=== PATIENT | male | born 1945 | race Caucasian/White ===

== ENCOUNTER → 2016-08-05 | Outpatient (REF) | payer MEDICARE, OTHER ==
[2016-08-05 16:59] LABS: MEAN CORPUSCULAR HEMOGLOBIN 29.4 pg (27.0-33.0); MEAN CORPUSCULAR HGB CONC 33.8 g/dl (32.0-36.5); MEAN CORPUSCULAR VOLUME 87.1 fl (80.0-96.0); RED CELL DISTRIBUTION WIDTH 12.9 % (11.5-14.5); WHITE BLOOD COUNT 7.7 K/mm3 (4.0-10.0)
[2016-08-05 17:50] LABS: ALBUMIN 3.7 GM/DL (3.2-5.2); ALBUMIN/GLOBULIN RATIO 1.03 (1.00-1.93); ALKALINE PHOSPHATASE 107 U/L (45-117); ALT/SGPT 27 U/L (12-78); ANION GAP 6 MEQ/L (8-16); AST/SGOT 18 U/L (15-37); BILIRUBIN,TOTAL 0.4 MG/DL (0.2-1.0); BLOOD UREA NITROGEN 15 MG/DL (7-18); CALCIUM LEVEL 8.8 MG/DL (8.8-10.2); CARBON DIOXIDE LEVEL 30 MEQ/L (21-32); CHLORIDE LEVEL 104 MEQ/L (98-107); CHOLESTEROL LEVEL 133 MG/DL (<200); CREATININE FOR GFR 0.83 MG/DL (0.70-1.30); GLOMERULAR FILTRATION RATE > 60.0 (>49); GLUCOSE, FASTING 104 MG/DL (80-110); SODIUM LEVEL 140 MEQ/L (136-145); TOTAL PROTEIN 7.3 GM/DL (6.4-8.2); TRIGLYCERIDES LEVEL 149 MG/DL (<150)
== END ==
LOC: M SFHCCLAY 13:34
PROVIDERS: ATTEND Family Medicine
DX: Z51.81 Encounter for therapeutic drug level monitoring (principal); Z79.01 Long term (current) use of anticoagulants; I10 Essential (primary) hypertension; E78.00 Pure hypercholesterolemia, unspecified; Z79.899 Other long term (current) drug therapy

== ENCOUNTER → 2017-07-18 | Outpatient (REF) | payer MEDICARE, OTHER ==
[2017-07-18 12:29] LABS: HEMATOCRIT 41.3 % (42.0-52.0); HEMOGLOBIN 13.8 g/dl (13.5-17.5); MEAN CORPUSCULAR HEMOGLOBIN 29.1 pg (27.0-33.0); MEAN CORPUSCULAR HGB CONC 33.4 g/dl (32.0-36.5); MEAN CORPUSCULAR VOLUME 86.9 fl (80.0-96.0); PLATELET COUNT, AUTOMATED 190 10^3/uL (150-450); RED BLOOD COUNT 4.75 10^6/uL (4.30-6.10); RED CELL DISTRIBUTION WIDTH 12.8 % (11.5-14.5)
[2017-07-18 12:47] LABS: TOTAL 25(OH) VITAMIN D 28.9 NG/ML (30.0-100.0)
[2017-07-18 12:59] LABS: ALBUMIN 3.7 GM/DL (3.2-5.2); ALKALINE PHOSPHATASE 100 U/L (45-117); ALT/SGPT 24 U/L (12-78); ANION GAP 8 MEQ/L (8-16); AST/SGOT 21 U/L (7-37); BILIRUBIN,TOTAL 0.4 MG/DL (0.2-1.0); BLOOD UREA NITROGEN 22 MG/DL (7-18); CARBON DIOXIDE LEVEL 30 MEQ/L (21-32); CHLORIDE LEVEL 104 MEQ/L (98-107); CHOLESTEROL LEVEL 122 MG/DL (<200); CHOLESTEROL RISK RATIO 4.518 (<5); CREATININE FOR GFR 0.89 MG/DL (0.70-1.30); DIGOXIN LEVEL 0.9 NG/ML (0.5-2.0); GLOMERULAR FILTRATION RATE > 60.0 (>42); GLUCOSE, FASTING 121 MG/DL (70-100); HDL CHOLESTEROL 27 MG/DL (>40); LDL CHOLESTEROL 72.6 MG/DL (<100); NON-HDL-C 95 MG/DL; POTASSIUM SERUM 4.2 MEQ/L (3.5-5.1); SODIUM LEVEL 142 MEQ/L (136-145); TOTAL PROTEIN 7.4 GM/DL (6.4-8.2); TRIGLYCERIDES LEVEL 112 MG/DL (<150)
== END ==
LOC: M SFHCCLAY 07:43
DX: E55.9 Vitamin D deficiency, unspecified (principal); I10 Essential (primary) hypertension; I48.2 Chronic atrial fibrillation; Z79.01 Long term (current) use of anticoagulants; E78.00 Pure hypercholesterolemia, unspecified
CPT/HCPCS: 80162

== ENCOUNTER → 2017-07-28 | Outpatient (CLI) | payer MEDICARE, OTHER | LOC: M RAD 15:31 | DX: M54.5 Low back pain (principal) | CPT/HCPCS: 72148 ==

== ENCOUNTER → 2017-08-29 | Outpatient (CLI) | payer MEDICARE, OTHER | LOC: M PAIN 11:00 | DX: M51.16 Intervertebral disc disorders with radiculopathy, lumbar region (principal); M54.5 Low back pain; G89.29 Other chronic pain; I10 Essential (primary) hypertension; E11.9 Type 2 diabetes mellitus without complications; E78.5 Hyperlipidemia, unspecified; M17.11 Unilateral primary osteoarthritis, right knee; I48.2 Chronic atrial fibrillation; K21.9 Gastro-esophageal reflux disease without esophagitis; E55.9 Vitamin D deficiency, unspecified; F17.200 Nicotine dependence, unspecified, uncomplicated; J43.9 Emphysema, unspecified; Z79.01 Long term (current) use of anticoagulants; Z79.899 Other long term (current) drug therapy; Z91.09 Other allergy status, other than to drugs and biological substances | CPT/HCPCS: G0463 ==

== ENCOUNTER → 2017-09-25 | Outpatient (CLI) | payer MEDICARE, OTHER | LOC: M PAIN 08:45 | DX: G89.29 Other chronic pain (principal); M51.16 Intervertebral disc disorders with radiculopathy, lumbar region; M48.061 Spinal stenosis, lumbar region without neurogenic claudication; G62.9 Polyneuropathy, unspecified; I10 Essential (primary) hypertension; E11.9 Type 2 diabetes mellitus without complications; E78.5 Hyperlipidemia, unspecified; M17.11 Unilateral primary osteoarthritis, right knee; I48.91 Unspecified atrial fibrillation; K21.9 Gastro-esophageal reflux disease without esophagitis; E55.9 Vitamin D deficiency, unspecified; F17.210 Nicotine dependence, cigarettes, uncomplicated; Z79.01 Long term (current) use of anticoagulants; Z79.899 Other long term (current) drug therapy; Z91.048 Other nonmedicinal substance allergy status | CPT/HCPCS: G0463 ==

== ENCOUNTER → 2017-10-23 | Outpatient (CLI) | payer MEDICARE, OTHER | LOC: M PAIN 09:15 | DX: M51.16 Intervertebral disc disorders with radiculopathy, lumbar region (principal); M48.061 Spinal stenosis, lumbar region without neurogenic claudication; G62.9 Polyneuropathy, unspecified; I10 Essential (primary) hypertension; E78.5 Hyperlipidemia, unspecified; I48.91 Unspecified atrial fibrillation; Z79.01 Long term (current) use of anticoagulants; Z79.899 Other long term (current) drug therapy | CPT/HCPCS: G0463 ==

== ENCOUNTER → 2018-02-27 | Outpatient (REF) | payer MEDICARE, OTHER ==
[2018-02-27 16:35] LABS: BASO # 0.1 10^3/uL (0.0-0.2); BASO % 0.6 % (0.0-1.0); EOS # 0.2 10^3/uL (0.0-0.50); EOS % 2.6 % (0.0-3.0); HEMATOCRIT 44.3 % (42.0-52.0); HEMOGLOBIN 15.1 g/dl (13.5-17.5); LYMPH # 1.8 10^3/uL (1.5-4.5); LYMPH % 21.3 % (24.0-44.0); MEAN CORPUSCULAR HEMOGLOBIN 29.3 pg (27.0-33.0); MEAN CORPUSCULAR HGB CONC 34.1 g/dl (32.0-36.5); MONO # 0.6 10^3/uL (0.0-0.8); MONO % 6.5 % (0.0-5.0); NEUTROPHILS # 5.8 10^3/uL (1.8-7.7); NEUTROPHILS % 68.5 % (36.0-66.0); PLATELET COUNT, AUTOMATED 175 10^3/uL (150-450); RED BLOOD COUNT 5.15 10^6/uL (4.30-6.10); WHITE BLOOD COUNT 8.5 10^3/uL (4.0-10.0)
[2018-02-27 16:56] LABS: ALBUMIN 3.9 GM/DL (3.2-5.2); ALT/SGPT 25 U/L (12-78); BILIRUBIN,TOTAL 0.4 MG/DL (0.2-1.0); BLOOD UREA NITROGEN 17 MG/DL (7-18); CALCIUM LEVEL 9.1 MG/DL (8.8-10.2); CARBON DIOXIDE LEVEL 30 MEQ/L (21-32); CHLORIDE LEVEL 102 MEQ/L (98-107); CREATININE FOR GFR 0.92 MG/DL (0.70-1.30); DIGOXIN LEVEL 1.3 NG/ML (0.5-2.0); FOLATE 14.6 NG/ML; GLOMERULAR FILTRATION RATE > 60.0 (>42); GLUCOSE, FASTING 123 MG/DL (70-100); POTASSIUM SERUM 4.2 MEQ/L (3.5-5.1); SODIUM LEVEL 138 MEQ/L (136-145); TOTAL PROTEIN 7.8 GM/DL (6.4-8.2); VITAMIN B12 LEVEL 413 PG/ML
[2018-02-27 17:28] LABS: HEMOGLOBIN A1c 6.6 %
== END ==
LOC: M SFHCCLAY 11:15
PROVIDERS: ATTEND Family Medicine
DX: R20.2 Paresthesia of skin (principal); Z79.01 Long term (current) use of anticoagulants; Z86.39 Personal history of other endocrine, nutritional and metabolic disease; I48.2 Chronic atrial fibrillation; E55.9 Vitamin D deficiency, unspecified
CPT/HCPCS: 80053; 80162; 82306; 82607; 82746; 83036; 85025; G0463

== ENCOUNTER → 2018-04-09 | Outpatient (CLI) | payer MEDICARE, OTHER ==
[~2018-04-09] MED LIST: GLUCAGON FOR INJ 1 MG VIAL (J1610) As Ordered ONE; ISOVUE-370 76% 100ML VIAL (Q9967) As Ordered ONE; VoLumen 0.1% SUSPENSION 450ML BOTTLE As Ordered ONE
--- NOTE | 2018-04-09 13:22 | REP ---
CT enterography: Without IV contrast and With IV and oral contrast. History: Rectal bleeding. Comparison study: November 04, 2011. CT enterography Technique: The patient ingested oral Volumen for PO contrast per protocol. 0.6 mg of intravenous glucagon is administered. 100 ml of Isovue 370 is given intravenously for intravenous contrast. Helical scanning is acquired. Arterial phase and delayed phase imaging was acquired. Thick slab coronal and sagittal MIP images are generated. In addition coronal and sagittal multiplanar re-formation images are generated and reviewed along with axial images. CT enterography findings: Preliminary digital senior graduate advisor radiograph is unremarkable. The lung bases remain clear on axial CT images. Cardiomegaly is observed and there is reflux of contrast opacified blood into the intrahepatic segment of the vena cava as well as in the hepatic veins. This can be a feature of right heart strain or right heart failure. No focal liver lesion is seen. The liver is not felt to be enlarged. Spleen is unremarkable. There is a small accessory splenule anteriorly unchanged. No adrenal lesion is seen on either side. No pancreatic abnormality is observed. The gallbladder is small and partially contracted in appearance. No CT abnormality is noted in the gallbladder. There is a 4.9 cm cyst in the upper pole left kidney which is unchanged from the comparison CT study. Smaller cortical cysts are also noted unchanged. No intrarenal calculus is seen. No hydronephrosis is seen. There is an infrarenal abdominal aortic aneurysm measuring 3.1 cm in greatest AP dimension. This measured 2.7 cm in AP dimension previously. Normal appendix is seen retrocecal. There is extensive left colonic diverticulosis without CT evidence of diverticulitis. Diverticulosis is seen as far proximal as the proximal transverse colon segment. There is no abnormal bowel wall thickening or enhancement seen in the large or small intestine on postcontrast images. No small or large bowel mass lesion is observed. Maximal intensity projection images show no additional abnormality. Impression: 1. Diverticulosis moderate in degree extending distally from the transverse segment. No evidence of diverticulitis. 2. 3.1 cm infrarenal abdominal aortic aneurysm. 3. Question right heart strain or right heart failure. Cardiac enlargement. 4. Renal cortical cysts. Electronically Signed by Ryan Cole MD 04/09/2018 05:21 P
== END ==
LOC: M RAD 07:26
PROVIDERS: ATTEND Physician Assistant Medical
DX: K62.5 Hemorrhage of anus and rectum (principal); I51.7 Cardiomegaly; N28.1 Cyst of kidney, acquired; I71.4 Abdominal aortic aneurysm, without rupture; K57.30 Diverticulosis of large intestine without perforation or abscess without bleeding
CPT/HCPCS: 74177; J1610; Q9967

== ENCOUNTER 2018-05-15 09:59 | Day surgery (SDC) | payer MEDICARE, OTHER ==
[~2018-05-15] VITALS: Ht 177.8 cm; Wt 108.0 kg
[~2018-05-15 09:59] MED LIST changes: +ATEN50TA2 PO; +DIGO0.25 PO; -GLUCAGON FOR INJ 1 MG VIAL (J1610) As Ordered ONE; -ISOVUE-370 76% 100ML VIAL (Q9967) As Ordered ONE; +LIDOCAINE 2% INJ 100 MG/5 ML SDV (FOR ANES.) As Ordered ONE; +LOVA40TA PO; +OMEP20CA3 PO; +PROPOFOL 200 MG/20 ML VIAL As Ordered ONE; +VITA100067 PO; +VITA100T60 PO; -VoLumen 0.1% SUSPENSION 450ML BOTTLE As Ordered ONE; +XARE10TA PO; +ZEST1TAB2 PO
[2018-05-15] MEDS ORDERED: NS 1,000 ML IV ONE (10:15)
--- NOTE | 2018-05-15 11:43 | ROOR ---
Patient Name: Michael Tran Procedure Date: 05/15/2018 11:23 AM Date of : 1945 Age: 73 Room: [facility] Gender: Male Note Status: Finalized Procedure: Upper GI endoscopy Indications: Hematochezia, Heme positive stool Providers: Luis MURCIA MD Referring MD: Rafita Novoa MD Requesting Provider: Medicines: Monitored Anesthesia Care Complications: No immediate complications. Procedure: Pre-Anesthesia Assessment: - The heart rate, respiratory rate, oxygen saturations, blood pressure, adequacy of pulmonary ventilation, and response to care were monitored throughout the procedure. The Endoscope was introduced through the mouth, and advanced to the second part of duodenum. The upper GI endoscopy was accomplished without difficulty. The patient tolerated the procedure well. Findings: A single 7 mm sessile polyp was found in the gastric antrum. The polyp was removed with a cold snare. Resection and retrieval were complete. Very small (insignificant) Hiatal Hernia. The exam was otherwise without abnormality. Impression: - A single gastric polyp. Resected and retrieved. - Very small (insignificant) Hiatal Hernia. - The examination was otherwise normal. Recommendation: - Telephone endoscopist for pathology results in 2 weeks. Luis Murcia MD Luis MURCIA MD 05/15/2018 11:43:13 AM This report has been signed electronically. Number of Addenda: 0 Note Initiated On: 05/15/2018 11:23 AM Estimated Blood Loss: Estimated blood loss: none.
[2018-05-15] MEDS ORDERED: PROPOFOL 200 MG/20 ML VIAL As Ordered ONE ×3 (11:56→12:35)
[2018-05-15] MEDS ORDERED: PHENYLephrine HCL 500 MCG/5 ML (100MCG/ML) SYRINGE (J2370) As Ordered ONE (12:07)
[2018-05-15] MEDS ORDERED: GLUCAGON FOR INJ 1 MG VIAL (J1610) As Ordered ONE (12:15)
--- NOTE | 2018-05-15 12:48 | ROOR ---
Patient Name: Michael Tran Procedure Date: 05/15/2018 11:24 AM Date of : 1945 Age: 73 Room: [facility] Gender: Male Note Status: Finalized Procedure: Colonoscopy Indications: Screening for colorectal malignant neoplasm Providers: Luis MURCIA MD Referring MD: Rafita Novoa MD Requesting Provider: Medicines: Monitored Anesthesia Care Complications: No immediate complications. Procedure: Pre-Anesthesia Assessment: - The heart rate, respiratory rate, oxygen saturations, blood pressure, adequacy of pulmonary ventilation, and response to care were monitored throughout the procedure. The Colonoscope was introduced through the anus and advanced to the cecum, identified by appendiceal orifice and ileocecal valve. The colonoscopy was performed without difficulty. The patient tolerated the procedure well. The quality of the bowel preparation was good. Findings: The perianal and digital rectal examinations were normal. Mild sigmoid diverticulosis and small internal hemorrhoids. Ten semi-sessile and semi-pedunculated polyps were found in the ascending colon. The polyps were 5 to 12 mm in size. These polyps were removed with a piecemeal technique using a hot snare. Resection and retrieval were complete. Ten sessile and semi-pedunculated polyps were found in the descending colon. The polyps were 5 to 12 mm in size. These polyps were removed with a piecemeal technique using a hot snare. Resection and retrieval were complete. Ten sessile and semi-pedunculated polyps were found in the sigmoid colon. The polyps were 5 to 12 mm in size. These polyps were removed with a hot snare. Resection and retrieval were complete. A 10 mm polyp was found in the mid sigmoid colon. The polyp was pedunculated. The polyp was removed with a hot snare. Resection and retrieval were complete. Eight sessile polyps were found in the rectum. The polyps were 5 to 7 mm in size. These polyps were removed with a hot snare. Resection and retrieval were complete. Impression: - Mild sigmoid diverticulosis and small internal hemorrhoids. - Ten 5 to 12 mm polyps in the ascending colon, removed piecemeal using a hot snare. Resected and retrieved. - Ten 5 to 12 mm polyps in the descending colon, removed piecemeal using a hot snare. Resected and retrieved. - Ten 5 to 12 mm polyps in the sigmoid colon, removed with a hot snare. Resected and retrieved. - One 10 mm polyp in the mid sigmoid colon, removed with a hot snare. Resected and retrieved. - Eight 5 to 7 mm polyps in the rectum, removed with a hot snare. Resected and retrieved. Recommendation: - Telephone endoscopist for pathology results in 2 weeks. - Repeat colonoscopy for surveillance based on pathology results. - (6 months to 1 year) - Resume Xarelto (rivaroxaban) at prior dose in 7 days. Luis Murcia MD Luis MURCIA MD 05/15/2018 12:48:00 PM This report has been signed electronically. Number of Addenda: 0 Note Initiated On: 05/15/2018 11:24 AM Estimated Blood Loss: Estimated blood loss: none.
[2018-05-15 13:05] VITALS: BP 133/98
== END 2018-05-15 13:20 | disposition home or self-care (01) ==
LOC: M OPP 09:59
PROVIDERS: ATTEND Internal Medicine Gastroenterology
DX: D12.2 Benign neoplasm of ascending colon (principal); D12.4 Benign neoplasm of descending colon; D12.5 Benign neoplasm of sigmoid colon; K62.1 Rectal polyp; K31.7 Polyp of stomach and duodenum; R19.5 Other fecal abnormalities; K64.8 Other hemorrhoids; K57.30 Diverticulosis of large intestine without perforation or abscess without bleeding; I48.2 Chronic atrial fibrillation; I34.0 Nonrheumatic mitral (valve) insufficiency; F17.210 Nicotine dependence, cigarettes, uncomplicated; Z79.899 Other long term (current) drug therapy
CPT/HCPCS: 43251; 45385; 88305; J1610; J2370

== ENCOUNTER → 2018-06-29 | Outpatient (CLI) | payer MEDICARE, OTHER ==
[~2018-06-29] MED LIST changes: -LIDOCAINE 2% INJ 100 MG/5 ML SDV (FOR ANES.) As Ordered ONE; -PROPOFOL 200 MG/20 ML VIAL As Ordered ONE
--- NOTE | 2018-06-29 10:10 | REP ---
Low-dose lung screening CT of the chest: The study is performed without IV contrast. The images are presented at lung windowing only. There are no comparisons. There is a ground-glass density posteriorly in the lingula on image 67 measuring 23 mm. There are no other nodules or masses. There are no infiltrates or effusions. Impression: The ground-glass density is a category 3 lesion with the probability of malignancy 1-2%. Follow-up chest CT and 6 months is recommended. Electronically Signed by Kayden Hess MD 06/29/2018 10:01 A
== END ==
LOC: M RAD 08:46
PROVIDERS: ATTEND Family Medicine
DX: Z72.0 Tobacco use (principal); Z87.891 Personal history of nicotine dependence

== ENCOUNTER → 2018-11-04 | Outpatient (REF) | payer MEDICARE, OTHER ==
[~2018-11-04] MED LIST changes: -OMEP20CA3 PO; +OMEP20CA4 PO
[2018-11-04 18:28] LABS: BLOOD UREA NITROGEN 14 MG/DL (7-18); CARBON DIOXIDE LEVEL 30 MEQ/L (21-32); CHLORIDE LEVEL 104 MEQ/L (98-107); CREATININE FOR GFR 0.85 MG/DL (0.70-1.30); GLOMERULAR FILTRATION RATE > 60.0 (>42); GLUCOSE, FASTING 118 MG/DL (70-100); MAGNESIUM LEVEL 1.9 MG/DL (1.8-2.4); POTASSIUM SERUM 3.8 MEQ/L (3.5-5.1); SODIUM LEVEL 140 MEQ/L (136-145)
[2018-11-04 19:12] LABS: HEMATOCRIT 42.5 % (42.0-52.0); HEMOGLOBIN 13.9 g/dl (13.5-17.5); MEAN CORPUSCULAR HEMOGLOBIN 28.5 pg (27.0-33.0); MEAN CORPUSCULAR HGB CONC 32.7 g/dl (32.0-36.5); MEAN CORPUSCULAR VOLUME 87.3 fl (80.0-96.0); PLATELET COUNT, AUTOMATED 178 10^3/uL (150-450); RED BLOOD COUNT 4.87 10^6/uL (4.30-6.10); WHITE BLOOD COUNT 8.2 10^3/uL (4.0-10.0)
== END ==
LOC: M LABDRAWC 16:34
PROVIDERS: ATTEND Physician Assistant
DX: I48.2 Chronic atrial fibrillation (principal)

== ENCOUNTER → 2018-12-01 | Outpatient (CLI) | payer MEDICARE, OTHER ==
[~2018-12-01] MED LIST changes: +ADV250INH INH; +CHOL100029 PO; -DIGO0.25 PO; +DIGO0.253 PO; +NICO21PAT TD; +OMEP1CAP73 PO; -OMEP20CA4 PO; +PRED10TA2 PO; +PROAAER10 INH
--- NOTE | 2018-12-01 14:20 | REP ---
Right lower extremity artery Doppler ultrasound: Right brachial artery peak systole: 110 mmHg Right dorsalis pedis peak systole: 122 mmHg LITHOGRAPHERS PRINTER peak systole: 130 mmHg BERONICA: 1.2 Peak Systolic Phasicity Velocity VARNISH SUPERVISOR 81.5 triphasic Profunda 157 point a triphasic SFA prox 72.6 triphasic SFA mid 58.3 triphasic SFA dist 55.2 triphasic Pop 66.1 triphasic BENJAMIN prox 58.3 triphasic Tib/P tr 37.0 triphasic LITHOGRAPHERS PRINTER pr 41.9 triphasic LITHOGRAPHERS PRINTER dst 46 point triphasic BENJAMIN dst 31.5 triphasic Mild stenosis is identified in the right common femoral artery and proximal profunda femoral artery. Left lower extremity artery Doppler ultrasound: Left brachial artery peak systole: 110 mmHg Dorsalis pedis peak systole: 120 mmHg LITHOGRAPHERS PRINTER peak systole: 128 mmHg BERONICA: 1.2 Peak Systolic Phasicity Velocity VARNISH SUPERVISOR 72.9 triphasic Profunda 871.7 triphasic SFA prox 71.1 triphasic SFA mid 75.2 triphasic SFA dist 39.9 triphasic Pop 847.7 triphasic BENJAMIN prox 47.2 triphasic Tib/P tr 40.9 triphasic LITHOGRAPHERS PRINTER pr 30.4 triphasic LITHOGRAPHERS PRINTER dst 33.5 triphasic BENJAMIN dst 34.2 triphasic There is no evidence of stenosis in the left lower extremity. Electronically Signed by Kayden Hess MD 12/01/2018 02:12 P
== END ==
LOC: M RAD 12:27
PROVIDERS: ATTEND Surgery Vascular Surgery
DX: M79.604 Pain in right leg (principal); M79.605 Pain in left leg; I77.1 Stricture of artery

== ENCOUNTER 2019-01-01 09:35 | Day surgery (SDC) | payer MEDICARE, OTHER ==
[~2019-01-01] VITALS: Ht 180.3 cm; Wt 106.1 kg
[~2019-01-01 09:35] MED LIST changes: -ADV250INH INH; +DIGO0.25 PO; -DIGO0.253 PO; -NICO21PAT TD; +NS 1,000 ML IV ONE; -OMEP1CAP73 PO; +OMEP20CA4 PO; -PRED10TA2 PO; -PROAAER10 INH
[2019-01-01] MEDS ORDERED: PROPOFOL 200 MG/20 ML VIAL As Ordered ONE (09:48)
[2019-01-01] MEDS ORDERED: LIDOCAINE 2% INJ 100 MG/5 ML SDV (FOR ANES.) As Ordered ONE (09:48)
[2019-01-01] MEDS ORDERED: LABETALOL HCL 100 MG/20 ML VIAL As Ordered ONE (10:37)
[2019-01-01] MEDS ORDERED: PHENYLephrine HCL 500 MCG/5 ML (100MCG/ML) SYRINGE (J2370) As Ordered ONE (10:48)
--- NOTE | 2019-01-01 10:54 | ROOR ---
Patient Name: Michael Tran Procedure Date: 01/01/2019 10:28 AM Date of : 1945 Age: 73 Room: [facility] Gender: Male Note Status: Finalized Procedure: Colonoscopy Indications: High risk colon cancer surveillance: Personal history of colonic polyps, Surveillance: History of numerous (> 10) adenomas on last colonoscopy (< 3 yrs), High risk colon cancer surveillance: Personal history of multiple (3 or more) adenomas, High risk colon cancer surveillance: Personal history of sessile serrated colon polyp (10 mm or greater in size) Providers: Luis MURCIA MD Referring MD: Rafita Novoa MD Requesting Provider: Medicines: Monitored Anesthesia Care Complications: No immediate complications. Procedure: Pre-Anesthesia Assessment: - The heart rate, respiratory rate, oxygen saturations, blood pressure, adequacy of pulmonary ventilation, and response to care were monitored throughout the procedure. The Colonoscope was introduced through the anus and advanced to the cecum, identified by the appendiceal orifice, ileocecal valve and palpation. The colonoscopy was performed without difficulty. The patient tolerated the procedure well. The quality of the bowel preparation was good. Findings: The perianal and digital rectal examinations were normal. Five sessile polyps were found in the sigmoid colon. The polyps were diminutive in size. These polyps were removed with a cold snare. Resection and retrieval were complete. Multiple medium-mouthed diverticula were found in the sigmoid colon. Internal hemorrhoids were found during retroflexion. The hemorrhoids were medium-sized. The exam was otherwise without abnormality on direct and retroflexion views. Impression: - Five diminutive polyps in the sigmoid colon, removed with a cold snare. Resected and retrieved. - Mild diverticulosis in the sigmoid colon. - Internal hemorrhoids. - The examination was otherwise normal on direct and retroflexion views. Recommendation: - Repeat colonoscopy in 3 years for surveillance. - Resume Xarelto (rivaroxaban) at prior dose tomorrow. Luis Murcia MD Luis MURCIA MD 01/01/2019 10:54:04 AM Electronically signed by Luis MURCIA MD Number of Addenda: 0 Note Initiated On: 01/01/2019 10:28 AM Estimated Blood Loss: Estimated blood loss: none.
[2019-01-01 11:15] VITALS: BP 124/85
== END 2019-01-01 11:16 | disposition home or self-care (01) ==
LOC: M OPP 09:35
PROVIDERS: ATTEND Internal Medicine Gastroenterology
DX: Z86.010 Personal history of colon polyps (principal); K63.5 Polyp of colon; K64.8 Other hemorrhoids; K57.30 Diverticulosis of large intestine without perforation or abscess without bleeding; K21.9 Gastro-esophageal reflux disease without esophagitis; F17.210 Nicotine dependence, cigarettes, uncomplicated; Z79.899 Other long term (current) drug therapy
CPT/HCPCS: 45385; 88305; J2370

== ENCOUNTER → 2019-08-04 | Outpatient (REF) | payer MEDICARE, OTHER ==
[~2019-08-04] MED LIST changes: +ADV250INH INH; -DIGO0.25 PO; +DIGO0.253 PO; +NICO21PAT TD; -NS 1,000 ML IV ONE; +OMEP1CAP73 PO; -OMEP20CA4 PO; +PRED10TA2 PO; +PROAAER10 INH
[2019-08-04 16:47] LABS: HEMATOCRIT 41.3 % (42.0-52.0); HEMOGLOBIN 13.4 g/dl (13.5-17.5); MEAN CORPUSCULAR HEMOGLOBIN 27.7 pg (27.0-33.0); MEAN CORPUSCULAR HGB CONC 32.4 g/dl (32.0-36.5); MEAN CORPUSCULAR VOLUME 85.3 fl (80.0-96.0); PLATELET COUNT, AUTOMATED 184 10^3/uL (150-450); RED BLOOD COUNT 4.84 10^6/uL (4.30-6.10); WHITE BLOOD COUNT 9.1 10^3/uL (4.0-10.0)
[2019-08-04 16:53] LABS: ALBUMIN 3.8 GM/DL (3.2-5.2); ALT/SGPT 22 U/L (12-78); BILIRUBIN,TOTAL 0.5 MG/DL (0.2-1.0); BLOOD UREA NITROGEN 21 MG/DL (7-18); CALCIUM LEVEL 8.7 MG/DL (8.8-10.2); CARBON DIOXIDE LEVEL 29 MEQ/L (21-32); CHLORIDE LEVEL 104 MEQ/L (98-107); CHOLESTEROL LEVEL 133 MG/DL (<200); CHOLESTEROL RISK RATIO 4.925 (<5); CREATININE FOR GFR 0.96 MG/DL (0.70-1.30); GLOMERULAR FILTRATION RATE > 60.0 (>42); GLUCOSE, FASTING 115 MG/DL (70-100); HDL CHOLESTEROL 27 MG/DL (>40); LDL CHOLESTEROL 69 MG/DL (<100); MAGNESIUM LEVEL 1.8 MG/DL (1.8-2.4); NON-HDL-C 106 MG/DL; POTASSIUM SERUM 4.2 MEQ/L (3.5-5.1); SODIUM LEVEL 140 MEQ/L (136-145); TOTAL PROTEIN 7.5 GM/DL (6.4-8.2); TRIGLYCERIDES LEVEL 184 MG/DL (<150)
== END ==
LOC: M LABDRAWC 15:50
PROVIDERS: ATTEND Physician Assistant
DX: I48.21 Permanent atrial fibrillation (principal); I11.9 Hypertensive heart disease without heart failure; E78.2 Mixed hyperlipidemia

== ENCOUNTER → 2019-12-24 | Outpatient (CLI) | payer MEDICARE, OTHER ==
--- NOTE | 2019-12-29 08:05 | REP ---
BILATERAL LOWER EXTREMITY ARTERIAL DOPPLER ULTRASOUND HISTORY: Nicotine dependence, atherosclerosis of the lower extremities bilaterally. FINDINGS: Ankle brachial indices are normal measured at 1.2 on the left and 1.0 on the right. Moderate plaquing is seen. Normal triphasic and biphasic waveforms are noted. No stenosis or occlusion is seen. BILATERAL LOWER EXTREMITY ARTERIAL VELOCITY CHART RIGHT PSV (cm/s) LEFT PSV (cm/s) MAMMOGRAPHY TECH 99 94 Profunda 163 89 Proximal SFA 130 108 Mid SFA 75 81 Distal SFA 36 102 Popliteal 64/72 77/93 Proximal BENJAMIN 106 104 Tibioperoneal trunk 57 50 Proximal LICENSED PHYSICAL THERAPY ASSISTANT 26 52 Distal LICENSED PHYSICAL THERAPY ASSISTANT 49 17 Distal BENJAMIN 15 49 MTDD
== END ==
LOC: M RAD 09:58
PROVIDERS: ATTEND Surgery Vascular Surgery
DX: I70.203 Unspecified atherosclerosis of native arteries of extremities, bilateral legs (principal); F17.210 Nicotine dependence, cigarettes, uncomplicated

== ENCOUNTER → 2020-01-06 | Outpatient (REF) | payer MEDICARE, OTHER ==
[2020-01-06 12:21] LABS: HEMATOCRIT 42.6 % (42.0-52.0); HEMOGLOBIN 12.8 g/dl (13.5-17.5); MEAN CORPUSCULAR VOLUME 83.2 fl (80.0-96.0); PLATELET COUNT, AUTOMATED 214 10^3/uL (150-450); RED BLOOD COUNT 5.12 10^6/uL (4.30-6.10); WHITE BLOOD COUNT 9.6 10^3/uL (4.0-10.0)
[2020-01-06 12:44] LABS: BLOOD UREA NITROGEN 19 MG/DL (7-18); CARBON DIOXIDE LEVEL 31 MEQ/L (21-32); CHLORIDE LEVEL 102 MEQ/L (98-107); CREATININE FOR GFR 0.88 MG/DL (0.70-1.30); GLOMERULAR FILTRATION RATE > 60.0 (>42); GLUCOSE, FASTING 116 MG/DL (70-100); MAGNESIUM LEVEL 1.7 MG/DL (1.8-2.4); POTASSIUM SERUM 4.3 MEQ/L (3.5-5.1); SODIUM LEVEL 140 MEQ/L (136-145)
== END ==
LOC: M LABDRAWC 11:27
PROVIDERS: ATTEND Physician Assistant
DX: I48.21 Permanent atrial fibrillation (principal); I11.9 Hypertensive heart disease without heart failure

== ENCOUNTER 2020-03-08 10:07 | Emergency (ER) | payer MEDICARE, OTHER ==
[~2020-03-08] VITALS: Ht 180.3 cm; Wt 110.3 kg
--- NOTE | 2020-03-08 10:35 | REP ---
INDICATION: CHEST PAIN COMPARISON: 07/10/2011 TECHNIQUE: PA and lateral. FINDINGS: The mediastinum and cardiac silhouette are normal. The lung soria demonstrate chronic appearing changes primarily involving the left lower lung zone without acute consolidation, effusion, or pneumothorax. The skeletal structures are intact and normal. IMPRESSION: Chronic appearing changes. No obvious acute consolidation or effusion. <Electronically signed by Shaw Glover > 03/08/20 [id number]
[2020-03-08] MEDS ORDERED: ASPIRIN 81 MG CHEW TABLET PO ONE (10:45)
[2020-03-08 10:48] LABS: BASO # 0.1 10^3/uL (0.0-0.2); BASO % 0.4 % (0.0-1.0); EOS # 0.1 10^3/uL (0.0-0.5); EOS % 0.8 % (0.0-3.0); HEMATOCRIT 44.1 % (42.0-52.0); HEMOGLOBIN 13.5 g/dl (13.5-17.5); LYMPH # 1.3 10^3/uL (1.5-5.0); LYMPH % 8.8 % (24.0-44.0); MEAN CORPUSCULAR HEMOGLOBIN 24.7 pg (27.0-33.0); MEAN CORPUSCULAR HGB CONC 30.6 g/dl (32.0-36.5); MEAN CORPUSCULAR VOLUME 80.8 fl (80.0-96.0); MONO # 0.8 10^3/uL (0.0-0.8); MONO % 5.2 % (0.0-5.0); NEUTROPHILS # 12.4 10^3/uL (1.5-8.5); NEUTROPHILS % 84.2 % (36.0-66.0); PLATELET COUNT, AUTOMATED 210 10^3/uL (150-450); RED BLOOD COUNT 5.46 10^6/uL (4.30-6.10); WHITE BLOOD COUNT 14.7 10^3/uL (4.0-10.0)
[2020-03-08 11:02] LABS: INR 1.23; PROTHROMBIN TIME 15.8 SECONDS (12.5-14.3)
[2020-03-08 11:03] LABS: PARTIAL THROMBOPLASTIN TIME 35.5 SECONDS (24.2-38.5)
[2020-03-08 11:26] LABS: ALBUMIN 3.7 GM/DL (3.2-5.2); ALT/SGPT 22 U/L (12-78); BILIRUBIN,DIRECT 0.2 MG/DL (0.0-0.2); BILIRUBIN,TOTAL 0.7 MG/DL (0.2-1.0); BLOOD UREA NITROGEN 19 MG/DL (7-18); CALCIUM LEVEL 9.2 MG/DL (8.8-10.2); CARBON DIOXIDE LEVEL 30 MEQ/L (21-32); CHLORIDE LEVEL 103 MEQ/L (98-107); CPK CREATINE PHOSPHOKINASE 148 U/L (39-308); CREATININE FOR GFR 1.01 MG/DL (0.70-1.30); FREE T4 0.83 NG/DL (0.76-1.46); GLOMERULAR FILTRATION RATE > 60.0 (>42); GLUCOSE, FASTING 126 MG/DL (70-100); LIPASE 73 U/L (73-393); MB/CK RELATIVE INDEX 2.03 (< OR =4); POTASSIUM SERUM 4.1 MEQ/L (3.5-5.1); SODIUM LEVEL 137 MEQ/L (136-145); TOTAL PROTEIN 8.4 GM/DL (6.4-8.2); TROPONIN I < 0.02 NG/ML (< 0.10)
[2020-03-08 12:15] VITALS: BP 131/78
--- NOTE | 2020-03-10 07:29 | ECGEPIP ---
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
== END 2020-03-08 12:24 | disposition home or self-care (01) ==
LOC: M ED 10:07
DX: R07.9 Chest pain, unspecified (principal); I48.91 Unspecified atrial fibrillation; E11.9 Type 2 diabetes mellitus without complications; I10 Essential (primary) hypertension; E78.5 Hyperlipidemia, unspecified; J44.9 Chronic obstructive pulmonary disease, unspecified; M19.90 Unspecified osteoarthritis, unspecified site; M48.061 Spinal stenosis, lumbar region without neurogenic claudication; Z87.891 Personal history of nicotine dependence; Z79.899 Other long term (current) drug therapy

== ENCOUNTER 2020-05-05 02:17 | Emergency (ER) | payer MEDICARE, OTHER ==
[~2020-05-05] VITALS: Ht 182.9 cm; Wt 106.9 kg
--- OUTSIDE RECORDS SUMMARY | 2020-05-05 02:26 | CCD ---
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 A ctive 549754584 Problem Tobacco use disorder Z72.0 Active 45593376 Problem Vitamin D deficiency E55.9 Active 52613867 Problem Gastro-esophageal reflux disease without esophagitis K21.9 Active 383682877 Problem Paresthesias R20.2 Active 66562480 Problem History of elevated glucose Z86.39 Active 4176 47607 Problem Chronic obstructive pulmonary disease, unspecified COPD ty pe J44.9 Active 33500680 Problem Spinal stenosis of lumbar re gion, unspecified whether neurogenic claudication present M48.061 Active 63068035 Problem Neuropathy G62.9 Active 568918707 Problem Cigarette nicotine dependence, uncomplicated F17.2 10 Active 84407296 Problem Intervertebral disc disorder with radiculopathy of lumbar region M51.16 Active 09379148 Problem Chronic obstructive pulmonary disease with acute exacerbat ion J44.1 Active 199929530 Problem Dyslipidemia E78.5 Active 785383502 Problem Hypertensive heart disease without heart failure I 11.9 Active 44278699 Problem Permanent atrial fibrillation I48.21 Active 44 5710457 ALLERGIES Allergen (clinical drug ingredient) Drug/Non Drug Allergy do cumented on EMR Reaction Allergy Type Onset Date Status possible velcro Rash Non Drug Allergy Act yesi ENCOUNTERS from 1945 to 2020-03-08 Encounter Location Date Provider Diagnosis [place] [address] Feb Asmita Cantu IMMUNIZATIONS Vaccine Route Administration Date Status Influenza (Pharmacy Given) Unknown Jan 11, 2020 Admin istered Influenza (18 yrs & older) Flublok IM Intramuscular Feb 05, 2019 Administered Influenza (High Dose 65 & up) IM Intramuscular Nov 30, 2015 A dministered Pneumococcal Adult 0.5mL (Pneumovax 23) IM Intramuscular Jan 26, 2013 Administered Pneumococcal 0.5mL (Prevnar 13) IM Intramuscular Nov 30, 2015 Administered Influenza (6mo & up) Fluzone Unknown Dec 27, 2011 Adm inistered SOCIAL HISTORY Tobacco Use: Social History Observation Description Date Details (start date - stop date) Current Smoker Sex Assigned At : Social History Observation Description Sex Assigned At Unknown Education: Question Answer Notes Level of Education: Not Finished College Audit Question Answer Notes Total Score: 2 Interpretation: Alcohol Education Language: Question Answer Notes Languages spoken: Yi Buddhist: Question Answer Notes Buddhist 13 Scientologist Sexual Hx: Question Answer Notes Had sex in the last 12 months (vaginal, oral, or anal)? Yes Have you ever had an STD? No Prevention Strategies discussed: Other with Women only Use protection? No Drug and Alcohol Question Answer Notes Total Score: 0 Interpretation: No problems reported Alcohol Screening: Question Answer Notes Did you have a drink containing alcohol in the past year? Ye s Points 2 Interpretation Negative How often did you have six or more drinks on one occas ion in the past year? Never (0 points) How many drinks did you have on a typica l day when you were drinking in the past year? 3 or 4 (1 point) How often did you have a drink containing alcohol in t he past year? Monthly or less (1 point) BMI Care Goal Follow-Up Question Answer Notes Above Normal BMI Follow-Up Dietary management educatio n, guidance, and counseling Tobacco Use: Question Answer Notes Are you a: current smoker 1 ppd for 40 years Additional Findings: Tobacco User Light cigarette smoker ((1 -9 cigs/day) Smoking Cessation Information Given 04/07/2019 Patient counseled on the dangers of tobacco use and urged to quit: 03/03/2019 How many cigarettes a day do you smoke? 5 or less -2 Are you interested in quitting? Ready to quit -using n icorette gum Counseled the patient on tobacco use, cessation provided REASON FOR REFERRAL No Information VITAL SIGNS No information MEDICATIONS Medication SIG (Take, Route, Frequency, Duration) Notes Start Da te End Date Status RA Nicotine Gum 2 MG 1 piece for 30 minute as nee ded Mouth/Throat prn up to 10 times per day for 90 days Active Digoxin 0.25MG 1 tablet Orally Once a day for 90 days Active Advair Diskus 250-50 MCG/DOSE 1 puff Inhalation Twice a day for 90 da ys Active Omeprazole 20MG DR 1 cap orally Daily for 90 day(s) Active Lovastatin 40MG 1 tab Orally Once a day for 90 days Active Xarelto 20MG 1 tablet with the evening meal Orally Once a day for 90 days Active Ventolin HFA 108 (90 Base) MCG/ACT 2 puffs as needed I nhalation every 6 hrs for 90 days Active Vitamin B1 100 MG 1 tablet Orally Once a day Active Vitamin D-3 1000 UNIT 2 tabs Orally Once a day Active Zestoretic 20-12.5 1 tablet Orally Once a day for 90 days Active Atenolol 50MG 1 tab Orally twice daily for 90 days Active PROCEDURES No Information RESULTS No Results REASON FOR VISIT chest tightness, shortness of breath MEDICAL (GENERAL) HISTORY Type Description Date Medical History HTN Medical History DM Medical History HYPERLIPIDEMIA Medical History SMOKING Medical History ARTHRITIS (R) KNEE Medical History TENDONITIS (L) SHOULDER Medical History A Fib Medical History Lumbar spinal stenosis Medical History Gastroesophageal eisf1sb disease without esophagitis Medical History Tobacco use disorder Medical History Vitamin D deficiency Medical History COPD Surgical History tonsilectomy as child 1954 Surgical History teeth extraction 1999 Surgical History Upper endoscopy,colonoscopy 05/19/18 Surgical History Colonoscopy 01/01/19 Hospitalization History surgery Hospitalization History jaw infection after had infected too 1967 Hospitalization History right leg injury 1960s Hospitalization History COPD 01/27- 01/29/19 Goals Section No Information Health Concerns No Information MEDICAL EQUIPMENT No Information MENTAL STATUS No Information FUNCTIONAL STATUS No Information ASSESSMENTS No Information PLAN OF TREATMENT Next Appt Details Provider Name:Asmita Cantu, 2020-08 07:00:00 AM, [address] [place], [address], Insurance Providers Payer Name Payer Address Payer Phone Insured Name Patient Relati onship to Insured Coverage Start Date Coverage End Date MEDICARE Part A and B [address] [facility] [phone] [id number] [phone] LEELEE WOODRUFF self 2012 [facility] [employer] [id number] [facility] [id number] [phone] LEELEE WOODRUFF self
--- OUTSIDE RECORDS SUMMARY | 2020-05-05 02:27 | CCD ---
Author Author [facility] Organization [facility] Address Unknown Phone Unavailable Care Team Providers Care Director [employer] Name Role Phone Violette Hernandes Unavailable Unavailable Henryenolaurel, Violette CHARLTON Unavailable Unavailable Symenolaurel, Violette Pinto PA Unavailable Unavailable Symenow, Violette Pinto PA Unavailable Unavailable Violette Hernandes PA Unavailable Unavailable SymenoViolette barragan PA Unavailable Unavailable HenryenoViolette barragan PA Unavailable Unavailable SymenoViolette barragan PA Unavailable Unavailable Symenolaurel, Violette Pinto PA Unavailable Unavailable Henryenolaurel, Violette Pinto PA Unavailable Unavailable Henryenolaurel, Violette Pinto PA Unavailable Unavailable Greta, Violette Pinto PA Unavailable Unavailable Greta, Violette Pinto PA Unavailable Unavailable Henryenolaurel, Violette Pinto PA Unavailable Unavailable Greta, Violette Pinto PA Unavailable Unavailable Symenolaurel, Violette Pinto PA Unavailable Unavailable Symenolaurel, Violette Pinto PA Unavailable Unavailable Symenolaurel, Violette Pinto PA Unavailable Unavailable Symenow, Violette Millie PA Unavailable Unavailable Symenow, Violette Millie PA Unavailable Unavailable Symenow, Violette Millie PA Unavailable Unavailable Symenow, Violette Millie PA Unavailable Unavailable Symenow, Violette Millie PA Unavailable Unavailable Symenow, Violette Millie PA Unavailable Unavailable Symenow, Violette Millie PA Unavailable Unavailable Symenow, Violette Millie PA Unavailable Unavailable Symenow, Violette Millie PA Unavailable Unavailable Symenow, Violette Millie PA Unavailable Unavailable Symenow, Violette Millie PA Unavailable Unavailable Symenow, Violette Millie PA Unavailable Unavailable Symenow, Violette Millie PA Unavailable Unavailable Symenow, Violette Millie PA Unavailable Unavailable Symenow, Violette Millie PA Unavailable Unavailable Symenow, Violette Millie PA Unavailable Unavailable Symenow, Violette Millie PA Unavailable Unavailable Symenow, Violette Millie PA Unavailable Unavailable Haseeb CONDE MD Unavailable Unavailable Haseeb CONDE MD Unavailable Unavailable Haseeb CONDE MD Unavailable Unavailable Haseeb CONDE MD Unavailable Unavailable Haseeb CONDE MD Unavailable Unavailable Haseeb CONDE MD Unavailable Unavailable Haseeb CONDE MD Unavailable Unavailable Haseeb CONDE MD Unavailable Unavailable Haseeb CONDE MD Unavailable Unavailable Haseeb CONDE MD Unavailable Unavailable Haseeb CONDE MD Unavailable Unavailable Haseeb CONDE MD Unavailable Unavailable Haseeb CONDE MD Unavailable Unavailable Haseeb CONDE MD Unavailable Unavailable Haseeb CONDE MD Unavailable Unavailable Haseeb CONDE MD Unavailable Unavailable Haseeb CONDE MD Unavailable Unavailable Haseeb CONDE MD Unavailable Unavailable Haseeb CONDE MD Unavailable Unavailable Haseeb CONDE MD Unavailable Unavailable Haseeb CONDE MD Unavailable Unavailable Haseeb CONDE MD Unavailable Unavailable Haseeb CONDE MD Unavailable Unavailable Haseeb CONDE MD Unavailable Unavailable Haseeb CONDE MD Unavailable Unavailable Haseeb CONDE MD Unavailable Unavailable Haseeb CONDE MD Unavailable Unavailable Haseeb CONDE MD Unavailable Unavailable Haseeb CONDE MD Unavailable Unavailable Haseeb CONDE MD Unavailable Unavailable Haseeb CONDE MD Unavailable Unavailable Haseeb CONDE MD Unavailable Unavailable Haseeb CONDE MD Unavailable Unavailable CONDE, E NATI MD Unavailable Unavailable CONDE, E NATI MD Unavailable Unavailable CONDE, E NATI MD Unavailable Unavailable CONDE, E NATI MD Unavailable Unavailable CONDE, E NATI MD Unavailable Unavailable CONDE, E NATI MD Unavailable Unavailable CONDE, E NATI MD Unavailable Unavailable CONDE, E NATI MD Unavailable Unavailable CONDE, E NATI MD Unavailable Unavailable CONDE, E NATI MD Unavailable Unavailable CONDE, E NATI MD Unavailable Unavailable CONDE, E NATI MD Unavailable Unavailable CONDE, E NATI MD Unavailable Unavailable CONDE, E NATI MD Unavailable Unavailable CONDE, E NATI MD Unavailable Unavailable CONDE, E NATI MD Unavailable Unavailable CONDE, E NATI MD Unavailable Unavailable CONDE, E NATI MD Unavailable Unavailable CONDE, E NATI MD Unavailable Unavailable CONDE, E NATI MD Unavailable Unavailable CONDE, E NATI MD Unavailable Unavailable CONDE, E NATI MD Unavailable Unavailable CONDE, E NATI MD Unavailable Unavailable CONDE, E NATI MD Unavailable Unavailable Re-disclosure Warning The records that you are about to access may contain information from federally-assisted alcohol or drug abuse programs. If such information is present, then the following federally mandated warning applies: This information has been disclosed to you from records protected by federal confidentiality rules (42 CFR part 2). The federal rules prohibit you from making any further disclosure of this information unless further disclosure is expressly permitted by the written consent of the person to whom it pertains or as otherwise permitted by 42 CFR part 2. A general authorization for the release of medical or other information is NOT sufficient for this purpose. The Federal rules restrict any use of the information to criminally investigate or prosecute any alcohol or drug abuse patient.The records that you are about to access may contain highly sensitive health information, the redisclosure of which is protected by Article 27-F of the [facility] Public Health law. If you continue you may have access to information: Regarding HIV / AIDS; Provided by facilities licensed or operated by the [facility] Office of Mental Health; or Provided by the [facility] Office for People With Developmental Disabilities. If such information is present, then the following [facility] mandated warning applies: This information has been disclosed to you from confidential records which are protected by state law. State law prohibits you from making any further disclosure of this information without the specific written consent of the person to whom it pertains, or as otherwise permitted by law. Any unauthorized further disclosure in violation of state law may result in a fine or detention sentence or both. A general authorization for the release of medical or other information is NOT sufficient authorization for further disc losure. Allergies and Adverse Reactions Type Description Substance Reaction Status Data Source(s ) possible velcro possible velcro possible velcro Rash Active eCW1 ([facility]) possible velcro possible velcro possible velcro Rash Active eCW1 (On License Of [facility]) Family History Family Member Name Family Member Gender Family Member Status Date o f Status Description Data Source(s) Unknown Unknown Problem [facility] ([facility]) Encounters Encounter Providers Location Date Indications Data Source(s ) Unknown [address] [facility] [address] 03/08/2020 12:00:00 AM EST eCW1 ([facility]) Outpatient [address] [facility] [address] 02/15/2020 12:00:00 AM EST eCW1 ([facility]) Outpatient Attender: Millie CHARLTON Main Office 02/04/2020 07:45:00 AM EST MEDENT ([facility]) Unknown [address] [facility] [address] 01/24/2020 12:00:00 AM EST eCW1 ([facility]) Unknown [address] [facility] [address] 12/30/2019 12:00:00 AM EDT eCW1 ([facility]) Unknown [address] [facility] [address] 12/22/2019 12:00:00 AM EDT eCW1 ([facility]) Office Visit Attender: NATI CONDE MD Main Office 12/14/2019 08:03:0 0 AM EDT MEDENT ([facility]) Office Visit Attender: NATI CONDE MD Main Office 11/09/2019 03:40:0 0 PM EDT MEDENT ([facility]) Office Visit Attender: NATI CONDE MD Main Office 10/06/2019 12:24:0 0 PM EDT MED[facility] ([facility]) Office Visit Attender: NATI CONDE MD Main Office 09/07/2019 12:38:0 0 PM EDT MEDENT ([facility]) Office Visit Attender: NATI CONDE MD Main Office 08/05/2019 10:46:0 0 AM EDT MEDENT ([facility]) Outpatient Attender: Millie CHARLTON Main Office 08/04/2019 08:15:00 AM EDT MED[facility] ([facility] [address] [place] [address] 07/12/2019 12:00:00 AM EDT eCW1 ([facility]) [address] [address] 07/09/2019 12:00:00 AM EDT eCW1 ([facility]) [address] [address] 07/02/2019 12:00:00 AM EDT eCW1 ([facility]) Outpatient 07/01/2019 03:36:00 PM EDT [facility] Office Visit Attender: NATI CONDE MD Main Office 06/30/2019 11:08:0 0 AM EDT MEDENT ([facility]) [address] [place] [address] 06/10/2019 12:00:00 AM EDT eCW1 ([facility]) [address] [place] [address] 04/15/2019 12:00:00 AM EST eCW1 ([facility]) [address] [place] [address] 04/12/2019 12:00:00 AM EST eCW1 ([facility]) [address] [place] [address] 04/07/2019 12:00:00 AM EST eCW1 ([facility]) [address] [place] [address] 03/15/2019 12:00:00 AM EST eCW1 ([facility]) [facility] [address] [facility] [place] [address] 03/12/2019 12:00:00 AM EST eCW1 ([facility]) [facility] [address] [facility] [place] [address] 03/12/2019 12:00:00 AM EST eCW1 ([facility]) Immunizations Vaccine Date Status Description Data Source(s) IIV3. This is one of two codes replacing CVX 15, which is being retired. 01/11/2020 05:18:00 PM EDT completed eCW1 ([facility]) IIV3. This is one of two codes replacing CVX 15, which is being retired. 01/11/2020 05:18:00 PM EDT completed eCW1 ([facility]) IIV3. This is one of two codes replacing CVX 15, which is being retired. 01/11/2020 05:18:00 PM EDT completed eCW1 ([facility]) INFLUENZA VACCINE QUADRIVALENT 2019- (65 YR UP)/MF59 C.1/PF 01/11/2020 12:00:00 AM EDT completed [facility] Medications Medication Brand Name Start Date Product Form Dose Route Admi nistrative Instructions Pharmacy Instructions Status Indications Reaction Description Data Source(s) 50 mg 07/11/2019 12:00:00 AM EDT tablet 60 TAKE ONE TABLET BY MOUTH TWICE A DAY TAKE ONE TABLET BY MOUTH TWICE A DAY SOLD: 07/12/2019 [facility] Levofloxacin 500 MG Oral Tablet Levofloxacin 500 MG 04/12/2019 1 2:00:00 AM EST active 1 tablet eCW1 ([facility]) 500 mg 04/12/2019 12:00:00 AM EST tablet 10 TAKE ONE TABLET BY MOUTH EVERY DAY TAKE ONE TABLET BY MOUTH EVERY DAY SOLD: 04/13/2019 [facility] Amoxicillin 500 MG Oral Capsule Amoxicillin 500 MG 04/12/2019 12:00 :00 AM EST active 2 capsule eCW1 ([facility]) 500 mg 04/12/2019 12:00:00 AM EST capsule 40 TAKE TWO CAPSULES BY MOUTH EVERY 12 HOURS TAKE TWO CAPSULES BY MOUTH EVERY 12 HOURS SOLD: 04/13/2019 [facility] Levofloxacin 500 MG Oral Tablet Levofloxacin 500 MG 04/07/2019 1 2:00:00 AM EST active 1 tablet eCW1 ([facility]) Amoxicillin 500 MG Oral Capsule Amoxicillin 500 MG 04/07/2019 12:00 :00 AM EST active 2 capsule eCW1 ([facility]) 250-50 mcg/dose 03/15/2019 12:00:00 AM EST blister with bienvenido ce 60 INHALE ONE PUFF BY MOUTH TWICE A DAY INHALE ONE PUFF BY MOUTH TWICE A DAY SOLD: 2019 [facility] Insurance Providers Payer name Policy type / Coverage type Policy ID Covered alliance party ID Covered alliance party's relationship to archuleta Policy [place]ta Plan Information MEDICARE [id number] T65 [facility] BENEFIT PLAN [id number] SP [id number] MEDICARE C [id number] S [id number] T65 [facility] BENEFIT PLAN O [id number] S [id number] [facility] PART B [id number] ANSI-Commercial [id number] ANSI-Medicare Part B [id number] MEDICARE [id number] T65 ANSI-Commercial [id number] ANSI-Medicare Part B [id number] MEDICARE [id number] SP [id number] A [facility] Part B [id number] Self [id number] Medicare (Part B) Medicare Primary [id number] Self [id number] [facility] Benefit Plan Medigap Part B [id number] [id number] [id number] Self [id number] Medicare (Part B) Medicare Primary [id number] Self [id number] ANSI-Commercial [id number] ANSI-Medicare Part B [id number] ANSI-Medicare Part B [id number] ANSI-Commercial [id number] ANSI-Commercial [id number] ANSI-Medicare Part B [id number] ANSI-Commercial [id number] ANSI-Medicare Part B [id number] ANSI-Commercial [id number] ANSI-Medicare Part B [id number] ANSI-Commercial [id number] ANSI-Medicare Part B [id number] ANSI-Medicare Part B [id number] ANSI-Commercial [id number] ANSI-Medicare Part B [id number] ANSI-Commercial [id number] ANSI-Medicare Part B [id number] ANSI-Commercial [id number] [facility] Part B [id number] Self [id number] Medicare (Part B) Medicare Primary [id number] Self [id number] i [facility] [id number] Self [id number] Medicare (Part B) Medicare Primary [id number] Self [id number] [facility] Medigap Part B [id number] Self [id number] Medicare (Part B) Medicare Primary [id number] Self [id number] [facility] Medigap Part B [id number] Self [id number] Medicare (Part B) Medicare Primary [id number] Self [id number] [facility] Medigap Part B [id number] Self [id number] Medicare (Part B) Medicare Primary [id number] Self [id number] Ghi Medigap Part B Self [facility] Health Benefit Plan Medigap Part B Self Medicare (Part B) Medicare Primary Self [id number] Problems, Conditions, and Diagnoses Code Display Name Description Problem Type Effective Dates Data Source(s) I48.21 [id number] Permanent atrial fibrillation Problem 02/15/2020 12:00:00 AM EST eCW1 (On [facility]) I11.9 [id number] Hypertensive heart disease without heart failure Problem 02/15/2020 12:00:00 AM EST eCW1 (On License Of [facility]) E78.5 [id number] Dyslipidemia Problem 02/15/2020 12:00:00 AM EST eCW1 (On [facility]) M48.061 [id number] Spinal stenosis of l umbar region, unspecified whether neurogenic claudication present Problem 02/15/2020 12:00:00 AM EST e CW1 (On [facility]) F17.210 [id number] Cigarette nicotine dependence, uncomplica clive Problem 01/25/2020 12:00:00 AM EST eCW1 (On [facility]) Surgeries/Procedures Procedure Description Date Indications Data Source(s) ECG ROUTINE ECG W/LEAST 12 LDS W/I&R 02/04/2020 12:00: 00 AM EST MEDENT ([facility]) ECHO TTHRC R-T 2D W/WOM-MODE COMPL SPEC&COLR DOP 08/16 12:00:00 AM EDT MEDENT ([facility]) ECG ROUTINE ECG W/LEAST 12 LDS W/I&R 08/04/2019 12:00: 00 AM EDT MEDENT ([facility]) Results ID Date Data Source [id number] 01/06/2020 09:10:00 AM EDT [facility]) Name Value Range Interpretation Code Description Data Yara rce(s) Supporting Document(s) Magnesium [Mass/volume] in Serum or Plasma 1.7 mg/dL 1.8-2.4 MEDENT ([facility]) ID Date Data Source [id number] 01/06/2020 09:10:00 AM EDT [facility] Name Value Range Interpretation Code Description Data Yara rce(s) Supporting Document(s) Glucose, Fasting 116 mg/dL 70-100 MEDENT ([facility]) Creatinine For GFR 0.88 mg/dL 0.70-1.30 MEDENT ([facility]) Glomerular Filtration Rate Laboratory test result MEDENT ([facility]) <content>Units are mL/min/1.73 m2</content>
<content></content>
<content>Chronic Kidney Disease Staging per NKF:</content>
<content></content>
<content>Stage I & II GFR >=60 Normal to Mildly Decreased</content>
<content>Stage III GFR 30- 59 Moderately Decreased</content>
<content>Stage IV GFR 15-29 Severely Decreased</content>
<content>Stage V GFR <15 Very Little GFR Left</content>
<content>ESRD GFR <15 on WARP COILER</content>
<content></content> Blood Urea Nitrogen 19 mg/dL 7-18 MEDENT ([facility]) Chloride Level 102 meq/L 98-107 MEDENT ([facility]) Sodium Level 140 meq/L 136-145 MED[facility] ([facility]) Potassium Serum 4.3 meq/L 3.5-5.1 MED[facility] ([facility]) Anion Gap 7 meq/L 8-16 [facility] Carbon Dioxide Level 31 meq/L 21-32 MEDENT ([facility]) Calcium Level 9.0 mg/dL 8.8-10.2 MEDENT ([facility]) ID Date Data Source [id number] 01/06/2020 09:10:00 AM EDT [facility]) Name Value Range Interpretation Code Description Data Yara rce(s) Supporting Document(s) Hemoglobin 12.8 g/dL 13.5-17.5 MED[facility] ([facility]) Red Blood Count 5.12 10 4.30-6.10 [facility] ([facility]) White Blood Count 9.6 10 4.0-10.0 [facility] Hematocrit 42.6 % 42.0-52.0 MEDENT ([facility]) Mean Corpuscular Hemoglobin 25.0 pg 27.0-33.0 MED[facility] ([facility]) Mean Corpuscular Volume 83.2 fl 80.0-96.0 M EDENT ([facility]) Red Cell Distribution Width 13.6 % 11.5-14.5 MED[facility] ([facility]) Mean Corpuscular HGB Conc 30.0 g/dL 32.0-36.5 MED[facility] ([facility]) Platelet Count, Automated 214 10 150-450 MED[facility] ([facility]) Nucleated Red Blood Cell % 0.0 % 0-0 [facility] ([facility]) ID Date Data Source [id number] 08/04/2019 10:26:00 AM EDT [facility] ([facility]) Name Value Range Interpretation Code Description Data Yara rce(s) Supporting Document(s) Magnesium [Mass/volume] in Serum or Plasma 1.8 mg/dL 1.8-2.4 [facility] ([facility]) ID Date Data Source [id number] 08/04/2019 10:26:00 AM EDT [facility] ([facility]) Name Value Range Interpretation Code Description Data Yara rce(s) Supporting Document(s) Triglycerides Level 184 mg/dL MEDENT ([facility]) Cholesterol Level 133 mg/dL MED[facility] ([facility]) HDL Cholesterol 27 mg/dL MED[facility] ([facility]) LDL Cholesterol 69 mg/dL MED[facility] ([facility]) Cholesterol Risk Ratio 4.925 MED[facility] ([facility]) Non-HDL-C 106 mg/dL MEDENT ([facility]) ID Date Data Source [id number] 08/04/2019 10:26:00 AM EDT [facility] Name Value Range Interpretation Code Description Data Yara rce(s) Supporting Document(s) Glucose, Fasting 115 mg/dL 70-100 MED[facility] ([facility]) Blood Urea Nitrogen 21 mg/dL 7-18 MED[facility] ([facility]) Creatinine For GFR 0.96 mg/dL 0.70-1.30 MEDENT ([facility]) Sodium Level 140 meq/L 136-145 MEDENT ([facility]) Glomerular Filtration Rate [facility] <content>Units are mL/min/1.73 m2</content>
<content></content>
<content>Chronic Kidney Disease Staging per NKF:</content>
<content></content>
<content>Stage I & II GFR >=60 Normal to Mildly Decreased</content>
<content>Stage III GFR 30- 59 Moderately Decreased</content>
<content>Stage IV GFR 15-29 Severely Decreased</content>
<content>Stage V GFR <15 Very Little GFR Left</content>
<content>ESRD GFR <15 on WARP COILER</content>
<content></content> Chloride Level 104 meq/L 98-107 MEDENT ([facility]) Carbon Dioxide Level 29 meq/L 21-32 MEDENT ([facility]) Potassium Serum 4.2 meq/L 3.5-5.1 MED[facility] ([facility]) Ast/Sgot 15 U/L 7-37 [facility] Anion Gap 7 meq/L 8-16 [facility] Calcium Level 8.7 mg/dL 8.8-10.2 MEDENT ([facility]) Alt/SGPT 22 U/L 12-78 [facility] Bilirubin,Total 0.5 mg/dL 0.2-1.0 MED[facility] ([facility]) Alkaline Phosphatase 98 U/L 45-117 MED[facility] ([facility] Total Protein 7.5 GM/DL 6.4-8.2 MED[facility] ([facility]) Albumin 3.8 GM/DL 3.2-5.2 [facility] ([facility] Albumin/Globulin Ratio 1.0 MED[facility] ([facility]) ID Date Data Source [id number] 08/04/2019 10:26:00 AM EDT MEDENT ([facility]) Name Value Range Interpretation Code Description Data Yara rce(s) Supporting Document(s) White Blood Count 9.1 10 4.0-10.0 MED[facility] ([facility]) Red Blood Count 4.84 10 4.30-6.10 [facility] ([facility]) Hemoglobin 13.4 g/dL 13.5-17.5 [facility] ([facility]) Hematocrit 41.3 % 42.0-52.0 MED[facility] ([facility]) Mean Corpuscular Volume 85.3 fl 80.0-96.0 M EDENT ([facility]) Mean Corpuscular Hemoglobin 27.7 pg 27.0-33.0 MEDENT ([facility]) Mean Corpuscular HGB Conc 32.4 g/dL 32.0-36.5 MEDENT ([facility]) Red Cell Distribution Width 13.2 % 11.5-14.5 MEDENT ([facility]) Platelet Count, Automated 184 10 150-450 MEDENT ([facility]) Nucleated Red Blood Cell % 0.0 % 0-0 MED ENT ([facility]) Procedure Social History Code Duration Value Status Description Data Source(s ) Smoking 02/15/2020 12:00:00 AM EST Current Smoker completed Curre nt Smoker eCW1 (On License Of [facility]) Smoking 02/15/2020 12:00:00 AM EST Current Smoker completed Curre nt Smoker eCW1 (On License Of [facility]) Smoking 08/02/2019 12:00:00 AM EDT Current Smoker completed Curre nt Smoker eCW1 (On License Of [facility]) Smoking 08/02/2019 12:00:00 AM EDT Current Smoker completed Curre nt Smoker eCW1 (On License Of [facility]) Smoking 08/02/2019 12:00:00 AM EDT Current Smoker completed Curre nt Smoker eCW1 (On License Of [facility]) Vital Signs ID Date Data Source UNK Name Value Range Interpretation Code Description Data Source(s) Diastolic blood pressure 87 mm[Hg] 87 mm[Hg] eCW1 (On [facility]) Systolic blood pressure 132 mm[Hg] 132 mm[Hg] e CW1 (On License Of [facility]) Body temperature 96.8 [degF] 96.8 [degF] eCW1 ( On License Of [facility]) Respiratory rate 18 /min 18 /min eCW1 ([facility]) Heart rate 73 /min 73 /min eCW1 ([facility]) Body mass index (BMI) [Ratio] 35.08 kg/m2 35.08 kg/m2 eCW1 (On License Of [facility]) Body height [in_i] eCW1 ([facility]) Body weight 241 [lb_av] 241 [lb_av] eCW1 ([facility]) Body mass index (BMI) [Ratio] 32.9 kg/m2 32.9 k g/m2 MEDENT ([facility]) Body height 71.75 [in_i] 71.75 [in_i] MEDENT ([facility]) 5'11.75" Body weight 241.00 [lb_av] 241.00 [lb_av] MEDEN T ([facility]) Body weight 110.678 kg 110.678 kg MEDENT ([facility], ) [place] body weight 172 [lb_av] 172 [lb_av] MEDEN T ([facility], ) Body mass index (BMI) [Ratio] 34.0 kg/m2 34.0 k g/m2 MEDENT ([facility], ) Body weight 244.00 [lb_av] 244.00 [lb_av] MEDEN T ([facility], ) Body height 71 [in_i] 71 [in_i] MEDENT ([facility], ) 5'11" Diastolic blood pressure 93 mm[Hg] 93 mm[Hg] MEDENT ([facility], ) Systolic blood pressure 164 mm[Hg] 164 mm[Hg] M EDENT ([facility], ) Diastolic blood pressure 68 mm[Hg] 68 mm[Hg] MEDENT ([facility]) sitting Systolic blood pressure 118 mm[Hg] 118 mm[Hg] M EDENT ([facility]) sitting Diastolic blood pressure 68 mm[Hg] 68 mm[Hg] MEDENT ([facility]) sitting, large cuff Systolic blood pressure 116 mm[Hg] 116 mm[Hg] M EDENT ([facility]) sitting, large cuff Respiratory rate 16 /min 16 /min MEDENT ( [facility]) Heart rate 72 /min 72 /min MEDENT ([facility]) Irregular Body mass index (BMI) [Ratio] 32.9 kg/m2 32.9 k g/m2 MEDENT ([facility]) Body height 71.75 [in_i] 71.75 [in_i] MEDENT ([facility]) 5'11.75" Body weight 241.00 [lb_av] 241.00 [lb_av] MEDEN T ([facility]) Body mass index (BMI) [Ratio] 35.22 kg/m2 35.22 kg/m2 eCW1 (On License Of [facility]) Body height [in_us] eCW1 ([facility]) Body weight Measured 242 [lb_av] 242 [lb_av] eC W1 (On License Of [facility]) Diastolic blood pressure 85 mm[Hg] 85 mm[Hg] eCW1 (On [facility] Of [facility]) Systolic blood pressure 127 mm[Hg] 127 mm[Hg] e CW1 (On License [facility]) Body temperature 96.7 [degF] 96.7 [degF] eCW1 ( On License Of [facility]) Respiratory rate 18 /min 18 /min eCW1 ([facility]) Heart rate 81 /min 81 /min eCW1 ([facility]) Diastolic blood pressure 84 mm[Hg] 84 mm[Hg] eCW1 (On [facility] Of [facility]) Systolic blood pressure 137 mm[Hg] 137 mm[Hg] e CW1 (On [facility] Of [facility]) Body temperature [degF] eCW1 ([facility]) Respiratory rate 18 /min 18 /min eCW1 ([facility]) Heart rate 84 /min 84 /min eCW1 ([facility]) Body mass index (BMI) [Ratio] 36.09 kg/m2 36.09 kg/m2 eCW1 (On License Of [facility]) Body height [in_us] eCW1 ([facility]) Body weight Measured 248 [lb_av] 248 [lb_av] eC W1 (On License Of [facility]) Patient Treatment Plan of Care Planned Activity Planned Date Details Description Data Source (s) Amoxicillin 500 MG Oral Capsule 04/12/2019 12:00:00 AM EST eCW1 (On License Of [facility]) Levofloxacin 500 MG Oral Tablet 04/12/2019 12:00:00 AM EST eCW1 (On License Of [facility]) Levofloxacin 500 MG Oral Tablet 04/07/2019 12:00:00 AM EST eCW1 (On License Of [facility]) Amoxicillin 500 MG Oral Capsule 04/07/2019 12:00:00 AM EST eCW1 (On License Of [facility])
[2020-05-05] MEDS ORDERED: methylPREDNISolone 125MG 2ML VIAL IV ONE (02:45)
[2020-05-05] MEDS: COMBIVENT RESPIMAT 100-20MCG INHALER 4GM INH SCH ×3 (02:45→04:30)
[2020-05-05 02:59] LABS: BASO # 0.1 10^3/uL (0.0-0.2); BASO % 0.3 % (0.0-1.0); EOS % 0.2 % (0.0-3.0); HEMATOCRIT 41.9 % (42.0-52.0); HEMOGLOBIN 12.9 g/dl (13.5-17.5); LYMPH # 0.8 10^3/uL (1.5-5.0); LYMPH % 4.2 % (24.0-44.0); MEAN CORPUSCULAR HEMOGLOBIN 25.2 pg (27.0-33.0); MEAN CORPUSCULAR HGB CONC 30.8 g/dl (32.0-36.5); MEAN CORPUSCULAR VOLUME 81.8 fl (80.0-96.0); MONO # 0.6 10^3/uL (0.0-0.8); MONO % 3.2 % (2.0-8.0); NEUTROPHILS # 18.3 10^3/uL (1.5-8.5); NEUTROPHILS % 91.3 % (36.0-66.0); PLATELET COUNT, AUTOMATED 201 10^3/uL (150-450); RED BLOOD COUNT 5.12 10^6/uL (4.30-6.10)
[2020-05-05] MEDS ORDERED: XARE20TA PO (03:12)
--- OUTSIDE RECORDS SUMMARY | 2020-05-05 03:25 | CCD ---
Author Author [facility] Organization [facility] Address Unknown Phone Unavailable Care Team Providers Care Duty Manager Name Role Phone Violette Hernandes Unavailable Unavailable Henryenolaurel, Violette CHARLTON Unavailable Unavailable Symenolaurel, Violette Pinto PA Unavailable Unavailable Symenow, Violette Pinto PA Unavailable Unavailable Violette Hernandes PA Unavailable Unavailable SymenoViolette barragan PA Unavailable Unavailable HenryenoViolette barragan PA Unavailable Unavailable SymenoViolette barragan PA Unavailable Unavailable Symenolaurel, Violette Pinto PA Unavailable Unavailable Henryenolaurel, Violette Pinto PA Unavailable Unavailable Henryenolaurel, Violette Pinto PA Unavailable Unavailable Great, Violette Pinto PA Unavailable Unavailable Greta, Violette Pinto PA Unavailable Unavailable Henryenolaurel, Violette Pitno PA Unavailable Unavailable Greta, Violette Pinto PA [...] is protected by Article 27-F of the [facility] Public Health law. If you continue you may have access to information: Regarding HIV / AIDS; Provided by facilities licensed or operated by the [facility] Office of Mental Health; or Provided by the [facility] Office for People With Developmental Disabilities. If such information is present, then the following [facility] mandated warning applies: This information has [...] law may result in a fine or mcfp sentence or both. A general authorization for the release of medical or other information is NOT sufficient authorization for further disc losure. Allergies and Adverse Reactions Type Description Substance Reaction Status Data Source(s ) possible velcro possible velcro possible velcro Rash Active eCW1 ([facility]) possible velcro possible velcro possible velcro Rash Active eCW1 ([facility]) Family History Family Member Name Family Member Gender Family Member Status Date o f Status Description Data Source(s) Unknown Unknown Problem MEDENT ([facility]) Encounters Encounter Providers Location Date Indications Data Source(s ) Unknown [address] [facility] [id number] 03/08/2020 12:00:00 AM EST eCW1 ([facility]) Outpatient [address] [facility] [id number] 02/15/2020 12:00:00 AM EST eCW1 ([facility]) Outpatient Attender: Millie CHARLTON Main Office 02/04/2020 07:45:00 AM EST MEDENT ([facility]) Unknown [address] [facility] [id number] 01/24/2020 12:00:00 AM EST eCW1 ([facility]) Unknown [address] [facility] [id number] 12/30/2019 12:00:00 AM EDT eCW1 ([facility]) Unknown [address] [facility] [id number] 12/22/2019 12:00:00 AM EDT eCW1 ([facility]) Office Visit Attender: NATI CONDE MD Main Office 12/14/2019 08:03:0 0 AM EDT MEDENT ([facility]) Office Visit Attender: NATI CONDE MD Main Office 11/09/2019 03:40:0 0 PM EDT MEDENT ([facility]) Office Visit Attender: NATI CONDE MD Main Office 10/06/2019 12:24:0 0 PM EDT MEDENT ([facility]) Office Visit Attender: NATI CONDE MD Main Office 09/07/2019 12:38:0 0 PM EDT MEDENT ([facility]) Office Visit Attender: NATI CONDE MD Main Office 08/05/2019 10:46:0 0 AM EDT MEDENT ([facility]) Outpatient Attender: Millie CHARLTON Main Office 08/04/2019 08:15:00 AM EDT MEDENT ([facility] [address] [place] [phone] 07/12/2019 12:00:00 AM EDT eCW1 ([facility]) [address] [address] 07/09/2019 12:00:00 AM EDT eCW1 ([facility]) [address] [address] 07/02/2019 12:00:00 AM EDT eCW1 ([facility]) Outpatient 07/01/2019 03:36:00 PM EDT [facility] Office Visit Attender: NATI CONDE MD Main Office 06/30/2019 11:08:0 0 AM EDT MEDENT ([facility]) [address] [place] [address] 06/10/2019 12:00:00 AM EDT eCW1 ([facility]) [address] [place] [address] 04/15/2019 12:00:00 AM EST eCW1 ([facility]) [address] [place] [address] 04/12/2019 12:00:00 AM EST eCW1 ([facility]) [address] [place] [address] 04/07/2019 12:00:00 AM EST eCW1 ([facility]) [address] [place] [address] 03/15/2019 12:00:00 AM EST eCW1 ([facility]) [facility] [address] [facility] [place] [address] 03/12/2019 12:00:00 AM EST eCW1 ([facility]) [facility] [address] [facility] [place] [address] 03/12/2019 12:00:00 AM EST eCW1 ([facility]) Immunizations Vaccine Date Status Description Data Source(s) IIV3. This is one of two codes replacing CVX 15, which is being retired. 01/11/2020 05:18:00 PM EDT completed eCW1 ([facility]) IIV3. This is one of two codes replacing CVX 15, which is being retired. 01/11/2020 05:18:00 PM EDT completed eCW1 ([facility]) IIV3. This is one of two codes replacing CVX 15, which is being retired. 01/11/2020 05:18:00 PM EDT completed eCW1 ([facility]) INFLUENZA VACCINE QUADRIVALENT 2019- (65 YR UP)/MF59 [...] 2:00:00 AM EST active 1 tablet eCW1 ([facility]) 500 mg 04/12/2019 12:00:00 AM EST tablet 10 TAKE ONE TABLET BY MOUTH EVERY DAY TAKE ONE TABLET BY MOUTH EVERY DAY SOLD: 04/13/2019 [facility] Amoxicillin 500 MG Oral Capsule Amoxicillin 500 MG 04/12/2019 12:00 :00 AM EST active 2 capsule eCW1 ([facility]) 500 mg 04/12/2019 12:00:00 AM EST capsule 40 TAKE TWO CAPSULES BY MOUTH EVERY 12 HOURS TAKE TWO CAPSULES BY MOUTH EVERY 12 HOURS SOLD: 04/13/2019 [facility] Levofloxacin 500 MG Oral Tablet Levofloxacin 500 MG 04/07/2019 1 2:00:00 AM EST active 1 tablet eCW1 ([facility]) Amoxicillin 500 MG Oral Capsule Amoxicillin 500 MG 04/07/2019 12:00 :00 AM EST active 2 capsule eCW1 ([facility]) 250-50 mcg/dose 03/15/2019 12:00:00 AM EST blister with bienvenido ce 60 INHALE ONE PUFF BY MOUTH TWICE A DAY INHALE ONE PUFF BY MOUTH TWICE A DAY SOLD: 2019 [facility] Insurance Providers Payer name Policy type / Coverage type Policy ID Covered constitution party ID Covered constitution party's relationship to archuleta Policy Archuleta Plan Information MEDICARE [id number] T65 [facility] HEALTH BENEFIT PLAN [id number] SP [id number] MEDICARE C [id number] S [id number] T65 [facility] HEALTH BENEFIT PLAN O [id number] S [id number] [facility] PART B C [id number] ANSI-Commercial [id number] ANSI-Medicare Part B [id number] MEDICARE [id number] ANSI-Commercial [id number] ANSI-Medicare Part B [id number] MEDICARE [id number] SP [id number] A [facility] Part B [id number] Self [id number] Medicare (Part B) Medicare Primary [id number] Self [id number] [facility] Benefit Plan Medigap Part B [id number] [id number] [facility] [id number] Self [id number] Medicare (Part B) Medicare Primary [id number] Self [id number] ANSI-Commercial [id number] ANSI-Medicare Part B [id number] ANSI-Medicare Part B [id number] ANSI-Commercial [id number] ANSI-Commercial [id number] ANSI-Medicare Part B [id number] ANSI-Commercial [id number] ANSI-Medicare Part B [id number] ANSI-Commercial [id number] ANSI-Medicare Part B [id number] ANSI-Commercial [id number] ANSI-Medicare Part B [id number] ANSI-Medicare Part B [id number] ANSI-Commercial [id number] ANSI-Medicare Part B [id number] ANSI-Commercial [id number] ANSI-Medicare Part B [id number] ANSI-Commercial [id number] [facility] Part B [id number] Self [id number] Medicare (Part B) Medicare Primary [id number] Self [id number] i [facility] [id number] Self [id number] Medicare (Part B) Medicare Primary [id number] Self [id number] [facility] Medigap Part B [id number] Self [id number] Medicare (Part B) Medicare Primary [id number] Self [id number] G[facility] Medigap Part B [id number] Self [id number] Medicare (Part B) Medicare Primary [id number] Self [id number] [facility] Medigap Part B [id number] Self [id number] Medicare (Part B) Medicare Primary [id number] Self [id number] Ghi Medigap Part B Self [facility] Health Benefit Plan Medigap Part B Self Medicare (Part B) Medicare Primary Self [id number] Problems, Conditions, and Diagnoses Code Display Name Description Problem Type Effective Dates Data Source(s) I48.21 [id number] Permanent atrial fibrillation Problem 02/15/2020 12:00:00 AM EST eCW1 ([facility]) I11.9 [id number] Hypertensive heart disease without heart failure Problem 02/15/2020 12:00:00 AM EST eCW1 ([facility]) E78.5 [id number] Dyslipidemia Problem 02/15/2020 12:00:00 AM EST eCW1 ([facility]) M48.061 [id number] Spinal stenosis of l umbar region, unspecified whether neurogenic claudication present Problem 02/15/2020 12:00:00 AM EST e CW1 ([facility]) F17.210 [id number] Cigarette nicotine dependence, uncomplica clive Problem 01/25/2020 12:00:00 AM EST eCW1 ([facility]) Surgeries/Procedures Procedure Description Date Indications Data Source(s) ECG ROUTINE ECG W/LEAST 12 LDS W/I&R 02/04/2020 12:00: 00 AM EST MEDENT ([facility]) ECHO TTHRC R-T 2D W/WOM-MODE COMPL SPEC&COLR DOP 08/16 12:00:00 AM EDT MEDENT ([facility]) ECG ROUTINE ECG W/LEAST 12 LDS W/I&R 08/04/2019 12:00: 00 AM EDT MEDENT ([facility]) Results ID Date Data Source [id number] 01/06/2020 09:10:00 AM EDT MEDENT ([facility]) Name Value Range Interpretation Code Description Data Yara rce(s) Supporting Document(s) Magnesium [Mass/volume] in Serum or Plasma 1.7 mg/dL 1.8-2.4 MEDENT ([facility]) ID Date Data Source [id number] 01/06/2020 09:10:00 AM EDT [facility] Name Value Range Interpretation Code Description Data Yara rce(s) Supporting Document(s) Glucose, Fasting 116 mg/dL 70-100 MEDENT ([facility]) Creatinine For GFR 0.88 mg/dL 0.70-1.30 MEDENT ([facility]) Glomerular Filtration Rate Laboratory test result MEDENT ([facility]) <content>Units are mL/min/1.73 m2</content>
<content></content>
<content>Chronic Kidney Disease Staging per NKF:</content>
<content></content>
<content>Stage I & II GFR >=60 Normal to Mildly Decreased</content>
<content>Stage III GFR 30- 59 Moderately Decreased</content>
<content>Stage IV GFR 15-29 Severely Decreased</content>
<content>Stage V GFR <15 Very Little GFR Left</content>
<content>ESRD GFR <15 on RUBBER THREAD SPOOLER</content>
<content></content> Blood Urea Nitrogen 19 mg/dL 7-18 MEDENT ([facility]) Chloride Level 102 meq/L 98-107 MEDENT ([facility]) Sodium Level 140 meq/L 136-145 MEDENT ([facility]) Potassium Serum 4.3 meq/L 3.5-5.1 MEDENT ([facility]) Anion Gap 7 meq/L 8-16 [facility] Carbon Dioxide Level 31 meq/L 21-32 MEDENT ([facility]) Calcium Level 9.0 mg/dL 8.8-10.2 MEDENT ([facility]) ID Date Data Source [id number] 01/06/2020 09:10:00 AM EDT [facility]) Name Value Range Interpretation Code Description Data Yara rce(s) Supporting Document(s) Hemoglobin 12.8 g/dL 13.5-17.5 MEDENT ([facility]) Red Blood Count 5.12 10 4.30-6.10 MEDENT ([facility]) White Blood Count 9.6 10 4.0-10.0 [facility] Hematocrit 42.6 % 42.0-52.0 MEDENT ([facility]iology [facility]) Mean Corpuscular Hemoglobin 25.0 pg 27.0-33.0 MEDENT ([facility]) Mean Corpuscular Volume 83.2 fl 80.0-96.0 M EDENT ([facility]) Red Cell Distribution Width 13.6 % 11.5-14.5 MEDENT ([facility]) Mean Corpuscular HGB Conc 30.0 g/dL 32.0-36.5 MEDENT ([facility]) Platelet Count, Automated 214 10 150-450 MEDENT ([facility]) Nucleated Red Blood Cell % 0.0 % 0-0 MED ENT ([facility]) ID Date Data Source [id number] 08/04/2019 10:26:00 AM EDT [facility]) Name Value Range Interpretation Code Description Data Yara rce(s) Supporting Document(s) Magnesium [Mass/volume] in Serum or Plasma 1.8 mg/dL 1.8-2.4 MEDENT ([facility]) ID Date Data Source [id number] 08/04/2019 10:26:00 AM EDT [facility]) Name Value Range Interpretation Code Description Data Yara rce(s) Supporting Document(s) Triglycerides Level 184 mg/dL MEDENT ([facility]) Cholesterol Level 133 mg/dL MEDENT ([facility]) HDL Cholesterol 27 mg/dL MEDENT ([facility]) LDL Cholesterol 69 mg/dL MEDENT ([facility]) Cholesterol Risk Ratio 4.925 MEDENT ([facility]) Non-HDL-C 106 mg/dL MEDENT (Cardiology [facility]) ID Date Data Source [id number] 08/04/2019 10:26:00 AM EDT MEDENT [facility] Name Value Range Interpretation Code Description Data Yara rce(s) Supporting Document(s) Glucose, Fasting 115 mg/dL 70-100 MEDENT ([facility]) Blood Urea Nitrogen 21 mg/dL 7-18 MEDENT ([facility]) Creatinine For GFR 0.96 mg/dL 0.70-1.30 MEDENT ([facility]iology [facility]) Sodium Level 140 meq/L 136-145 MEDENT ([facility]) [facility] Filtration [facility]) <content>Units are mL/min/1.73 m2</content>
<content></content>
<content>Chronic Kidney Disease Staging per NKF:</content>
<content></content>
<content>Stage I & II GFR >=60 Normal to Mildly Decreased</content>
<content>Stage III GFR 30- 59 Moderately Decreased</content>
<content>Stage IV GFR 15-29 Severely Decreased</content>
<content>Stage V GFR <15 Very Little GFR Left</content>
<content>ESRD GFR <15 on RUBBER THREAD SPOOLER</content>
<content></content> Chloride Level 104 meq/L 98-107 MEDENT ([facility]) Carbon Dioxide Level 29 meq/L 21-32 MEDENT ([facility]) Potassium Serum 4.2 meq/L 3.5-5.1 MEDENT ([facility]) Ast/Sgot 15 U/L 7-37 [facility] Anion Gap 7 meq/L 8-16 [facility] Calcium Level 8.7 mg/dL 8.8-10.2 MEDENT ([facility]) Alt/SGPT 22 U/L 12-78 MEDENT [facility] Bilirubin,Total 0.5 mg/dL 0.2-1.0 MEDENT ([facility]) Alkaline Phosphatase 98 U/L 45-117 MEDENT ([facility]) Total Protein 7.5 GM/DL 6.4-8.2 MEDENT ([facility]) Albumin 3.8 GM/DL 3.2-5.2 MEDENT ([facility] Albumin/Globulin Ratio 1.0 MEDENT ([facility]) ID Date Data Source [id number] 08/04/2019 10:26:00 AM EDT MEDENT ([facility]) Name Value Range Interpretation Code Description Data Yara rce(s) Supporting Document(s) White Blood Count 9.1 10 4.0-10.0 MEDENT ([facility]) Red Blood Count 4.84 10 4.30-6.10 MED[facility] ([facility]) Hemoglobin 13.4 g/dL 13.5-17.5 MEDENT ([facility]) Hematocrit 41.3 % 42.0-52.0 MEDENT ([facility]) Mean Corpuscular Volume 85.3 fl 80.0-96.0 M EDENT ([facility]) Mean Corpuscular Hemoglobin 27.7 pg 27.0-33.0 MEDENT ([facility]) Mean Corpuscular HGB Conc 32.4 g/dL 32.0-36.5 MED[facility] ([facility]) Red Cell Distribution Width 13.2 % 11.5-14.5 MEDENT ([facility]) Platelet Count, Automated 184 10 150-450 MEDENT ([facility]) Nucleated Red Blood Cell % 0.0 % 0-0 MED ENT ([facility]) Procedure Social History Code Duration Value Status Description Data Source(s ) Smoking 02/15/2020 12:00:00 AM EST Current Smoker completed Curre nt Smoker eCW1 ([facility]) Smoking 02/15/2020 12:00:00 AM EST Current Smoker completed Curre nt Smoker eCW1 ([facility]) Smoking 08/02/2019 12:00:00 AM EDT Current Smoker completed Curre nt Smoker eCW1 ([facility]) Smoking 08/02/2019 12:00:00 AM EDT Current Smoker completed Curre nt Smoker eCW1 ([facility]) Smoking 08/02/2019 12:00:00 AM EDT Current Smoker completed Curre nt Smoker eCW1 ([facility]) Vital Signs ID Date Data Source UNK Name Value Range Interpretation Code Description Data Source(s) Diastolic blood pressure 87 mm[Hg] 87 mm[Hg] eCW1 ([facility]) Systolic blood pressure 132 mm[Hg] 132 mm[Hg] e CW1 ([facility]) Body temperature 96.8 [degF] 96.8 [degF] eCW1 ( [facility]) Respiratory rate 18 /min 18 /min eCW1 ([facility]) Heart rate 73 /min 73 /min eCW1 ([facility]) Body mass index (BMI) [Ratio] 35.08 kg/m2 35.08 kg/m2 eCW1 ([facility]) Body height [in_i] eCW1 ([facility]) Body weight 241 [lb_av] 241 [lb_av] eCW1 ([facility]) Body mass index (BMI) [Ratio] 32.9 kg/m2 32.9 k g/m2 MEDENT ([facility]) Body height 71.75 [in_i] 71.75 [in_i] MEDENT ([facility]) 5'11.75" Body weight 241.00 [lb_av] 241.00 [lb_av] MEDEN T ([facility]) Body weight 110.678 kg 110.678 kg MEDENT ([facility], ) Purcell body weight 172 [lb_av] 172 [lb_av] MEDEN T ([facility], ) Body mass index (BMI) [Ratio] 34.0 kg/m2 34.0 k g/m2 MEDENT ([facility], ) Body weight 244.00 [lb_av] 244.00 [lb_av] MEDEN T ([facility], ) Body height 71 [in_i] 71 [in_i] MEDENT ([facility], ) 5'11" Diastolic blood pressure 93 mm[Hg] 93 mm[Hg] MEDENT ([facility], ) Systolic blood pressure 164 mm[Hg] 164 mm[Hg] M EDENT ([facility], ) Diastolic blood pressure 68 mm[Hg] 68 mm[Hg] MEDENT ([facility]) sitting Systolic blood pressure 118 mm[Hg] 118 mm[Hg] M EDENT ([facility]) sitting Diastolic blood pressure 68 mm[Hg] 68 mm[Hg] MEDENT ([facility]) sitting, large cuff Systolic blood pressure 116 mm[Hg] 116 mm[Hg] M EDENT ([facility]) sitting, large cuff Respiratory rate 16 /min 16 /min MEDENT ( [facility]) Heart rate 72 /min 72 /min MEDENT ([facility]) Irregular Body mass index (BMI) [Ratio] 32.9 kg/m2 32.9 k g/m2 MEDENT ([facility]) Body height 71.75 [in_i] 71.75 [in_i] MEDENT ([facility]) 5'11.75" Body weight 241.00 [lb_av] 241.00 [lb_av] MEDEN T ([facility]) Body mass index (BMI) [Ratio] 35.22 kg/m2 35.22 kg/m2 eCW1 ([facility]) Body height [in_us] eCW1 ([facility]) Body weight Measured 242 [lb_av] 242 [lb_av] eC W1 ([facility]) Diastolic blood pressure 85 mm[Hg] 85 mm[Hg] eCW1 ([facility]) Systolic blood pressure 127 mm[Hg] 127 mm[Hg] e CW1 ([facility]) Body temperature 96.7 [degF] 96.7 [degF] eCW1 ( [facility]) Respiratory rate 18 /min 18 /min eCW1 ([facility]) Heart rate 81 /min 81 /min eCW1 ([facility]) Diastolic blood pressure 84 mm[Hg] 84 mm[Hg] eCW1 ([facility]) Systolic blood pressure 137 mm[Hg] 137 mm[Hg] e CW1 ([facility]) Body temperature [degF] eCW1 ([facility]) Respiratory rate 18 /min 18 /min eCW1 ([facility]) Heart rate 84 /min 84 /min eCW1 ([facility]) Body mass index (BMI) [Ratio] 36.09 kg/m2 36.09 kg/m2 eCW1 ([facility]) Body height [in_us] eCW1 ([facility]) Body weight Measured 248 [lb_av] 248 [lb_av] eC W1 ([facility]) Patient Treatment Plan of Care Planned Activity Planned Date Details Description Data Source (s) Amoxicillin 500 MG Oral Capsule 04/12/2019 12:00:00 AM EST eCW1 ([facility]) Levofloxacin 500 MG Oral Tablet 04/12/2019 12:00:00 AM EST [email or web address] ([facility]) Levofloxacin 500 MG Oral Tablet 04/07/2019 12:00:00 AM EST eCW1 ([facility]) Amoxicillin 500 MG Oral Capsule 04/07/2019 12:00:00 AM EST eCW1 ([facility])
[2020-05-05 03:30] LABS: BLOOD UREA NITROGEN 24 MG/DL (7-18); CALCIUM LEVEL 8.3 MG/DL (8.8-10.2); CARBON DIOXIDE LEVEL 28 MEQ/L (21-32); CHLORIDE LEVEL 100 MEQ/L (98-107); CK-MB VALUE MASS 2.3 NG/ML (<3.6); CPK CREATINE PHOSPHOKINASE 170 U/L (39-308); GLOMERULAR FILTRATION RATE > 60.0 (>42); GLUCOSE, FASTING 135 MG/DL (70-100); MB/CK RELATIVE INDEX 1.35 (< OR =4); NT-PRO BNP 997 PG/ML (<125); POTASSIUM SERUM 3.9 MEQ/L (3.5-5.1); SODIUM LEVEL 136 MEQ/L (136-145); TROPONIN I < 0.02 NG/ML (< 0.10)
--- NOTE | 2020-05-05 03:47 | REPVR ---
PROCEDURE INFORMATION: Exam: XR Chest, 1 View Exam date and time: 05/05/2020 2:36 AM Age: 75 years old Clinical indication: Other: SOB TECHNIQUE: Imaging protocol: XR of the chest Views: 1 view. COMPARISON: 1. CR Chest, 2 view PA, Lat 2020-03-08 10:[address] Chest without contrast 2019-01-27 23:37 3. IN PORTABLE CHEST X-RAY 2019-01-27 22:31 FINDINGS: Limitations: Limited by patient's body habitus. Lungs: Peripheral lower lung hazy and or interstitial lung opacities, correlate for atypical infection. Mild COPD/emphysema. Pleural spaces: Unremarkable. No pleural effusion. No pneumothorax. Heart/Mediastinum: Unremarkable. No cardiomegaly. Bones/joints: Unremarkable. IMPRESSION: 1. Peripheral lower lung hazy and or interstitial lung opacities, correlate for atypical infection. 2. Mild COPD/emphysema. Electronically signed by: Luis Mirza On 05/05/2020 03:47:45 AM
[2020-05-05 04:15] VITALS: BP 137/92
--- NOTE | 2020-05-05 04:27 | REPVR ---
PROCEDURE INFORMATION: Exam: CT Chest Without Contrast; Diagnostic Exam date and time: 05/05/2020 4:04 AM Age: 75 years old Clinical indication: Shortness of breath; Additional info: ? Infiltrates on cxr TECHNIQUE: Imaging protocol: Diagnostic computed tomography of the chest without contrast. 3D rendering (Not supervised by radiologist): MIP and/or 3D reconstructed images were created by the technologist. Radiation optimization: All CT scans at this facility use at least one of these dose optimization techniques: automated exposure control; mA and/or kV adjustment per patient size (includes targeted exams where dose is matched to clinical indication); or iterative reconstruction. COMPARISON: 1. CT Chest without contrast 2019-01-27 23:37 2. CR Chest, 1 view 2020-05-05 02:49 FINDINGS: Lungs: There is some mild vague hazy lung opacities, likely in part motion artifact, and subsegmental atelectasis. Less likely infection, although not entirely excluded given the motion. Mild bronchiectasis and centrilobular pulmonary emphysema. Pleural spaces: Unremarkable. No pneumothorax. No pleural effusion. Heart: Right cardiac atrium and ventricular enlargement. Aorta: Mild aortic atherosclerosis. Lymph nodes: Unremarkable. No enlarged lymph nodes. Liver: Hepatic steatosis. Kidneys and ureters: Benign 5.5 cm left renal simple cyst. Stomach and bowel: Gastric wall thickening versus incomplete distension, suspect gastritis with some ulcers in the gastric fundus, correlate. Bones/joints: Unremarkable. No acute fracture. Soft tissues: Unremarkable. IMPRESSION: 1. Mild hazy lung opacities, suspect in part motion artifact. Could also reflect atypical early/mild infectious or inflammatory causes. 2. Unchanged bronchial wall thickening, bronchiectasis, mild emphysema and bronchial wall thickening. 3. Right cardiac atrium and ventricular enlargement. 4. Gastric wall thickening versus incomplete distension, suspect gastritis with some ulcers in the gastric fundus, correlate. COMMENTS: Consistent with the [employer]'s Incidental Findings Committee white paper (J Am Diane Radiol 2018): Any incidental renal lesion less than 1 cm or classified as too small to characterize, or any incidental cystic renal lesion characterized as simple-appearing, is likely benign. No follow-up imaging is recommended for these lesions per consensus recommendations based on imaging criteria. Electronically signed by: Luis Mirza On 05/05/2020 04:27:40 AM
[2020-05-05] MEDS ORDERED: PRED10TA2 PO (04:39)
[2020-05-05] MEDS ORDERED: MOXI1TAB PO (04:39)
[2020-05-05] MEDS ORDERED: MOXIFLOXACIN 400 MG TAB PO ONE (04:45)
--- NOTE | 2020-05-05 08:21 | ECGEPIP ---
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
== END 2020-05-05 04:58 | disposition home or self-care (01) ==
LOC: M ED 02:17
DX: J44.0 Chronic obstructive pulmonary disease with (acute) lower respiratory infection (principal); I48.91 Unspecified atrial fibrillation; I51.7 Cardiomegaly; E11.9 Type 2 diabetes mellitus without complications; I10 Essential (primary) hypertension; E78.5 Hyperlipidemia, unspecified; K21.9 Gastro-esophageal reflux disease without esophagitis; M48.061 Spinal stenosis, lumbar region without neurogenic claudication; F17.200 Nicotine dependence, unspecified, uncomplicated; R93.3 Abnormal findings on diagnostic imaging of other parts of digestive tract; Z79.899 Other long term (current) drug therapy
CPT/HCPCS: 36415; 71045; 71250; 80048; 82550; 82553; 82803; 83880; 84484; 85025; 87798; 93005; 94640; 96374; 99284; J2930

== ENCOUNTER → 2020-08-03 | Outpatient (REF) | payer MEDICARE, OTHER ==
[~2020-08-03] MED LIST changes: +MOXI1TAB PO; +XARE20TA PO
[2020-08-03 12:27] LABS: HEMATOCRIT 42.2 % (42.0-52.0); HEMOGLOBIN 13.1 g/dl (13.5-17.5); MEAN CORPUSCULAR HEMOGLOBIN 26.1 pg (27.0-33.0); MEAN CORPUSCULAR VOLUME 84.1 fl (80.0-96.0); PLATELET COUNT, AUTOMATED 183 10^3/uL (150-450); RED BLOOD COUNT 5.02 10^6/uL (4.30-6.10); WHITE BLOOD COUNT 7.9 10^3/uL (4.0-10.0)
[2020-08-03 13:07] LABS: ALBUMIN 3.7 GM/DL (3.2-5.2); ALT/SGPT 18 U/L (12-78); BILIRUBIN,TOTAL 0.5 MG/DL (0.2-1.0); BLOOD UREA NITROGEN 17 MG/DL (7-18); CARBON DIOXIDE LEVEL 31 MEQ/L (21-32); CHLORIDE LEVEL 104 MEQ/L (98-107); CHOLESTEROL LEVEL 131 MG/DL (<200); CHOLESTEROL RISK RATIO 4.517 (<5); CREATININE FOR GFR 0.83 MG/DL (0.70-1.30); GLOMERULAR FILTRATION RATE > 60.0 (>42); GLUCOSE, FASTING 121 MG/DL (70-100); HDL CHOLESTEROL 29 MG/DL (>40); LDL CHOLESTEROL 69 MG/DL (<100); MAGNESIUM LEVEL 1.7 MG/DL (1.8-2.4); NON-HDL-C 102 MG/DL; SODIUM LEVEL 140 MEQ/L (136-145); TOTAL PROTEIN 7.3 GM/DL (6.4-8.2); TRIGLYCERIDES LEVEL 167 MG/DL (<150)
== END ==
LOC: M LABDRAWC 11:42
PROVIDERS: ATTEND Physician Assistant
DX: I48.21 Permanent atrial fibrillation (principal); I11.9 Hypertensive heart disease without heart failure; E78.2 Mixed hyperlipidemia

== ENCOUNTER → 2020-10-02 | Outpatient (REF) | payer MEDICARE, OTHER ==
[2020-10-02 12:51] LABS: HEMATOCRIT 42.7 % (42.0-52.0); HEMOGLOBIN 13.3 g/dl (13.5-17.5); MEAN CORPUSCULAR HEMOGLOBIN 26.5 pg (27.0-33.0); MEAN CORPUSCULAR HGB CONC 31.1 g/dl (32.0-36.5); MEAN CORPUSCULAR VOLUME 85.1 fl (80.0-96.0); PLATELET COUNT, AUTOMATED 197 10^3/uL (150-450); RED BLOOD COUNT 5.02 10^6/uL (4.30-6.10); WHITE BLOOD COUNT 9.4 10^3/uL (4.0-10.0)
[2020-10-02 13:31] LABS: BLOOD UREA NITROGEN 20 MG/DL (7-18); CALCIUM LEVEL 9.4 MG/DL (8.8-10.2); CARBON DIOXIDE LEVEL 31 MEQ/L (21-32); CHLORIDE LEVEL 106 MEQ/L (98-107); CREATININE FOR GFR 0.78 MG/DL (0.70-1.30); GLOMERULAR FILTRATION RATE > 60.0 (>42); GLUCOSE, FASTING 124 MG/DL (70-100); POTASSIUM SERUM 4.4 MEQ/L (3.5-5.1); SODIUM LEVEL 142 MEQ/L (136-145)
== END ==
LOC: M LABDRAWC 11:53
PROVIDERS: ATTEND Physician Assistant
DX: R42 Dizziness and giddiness (principal); Z86.39 Personal history of other endocrine, nutritional and metabolic disease

== ENCOUNTER → 2021-02-02 | Outpatient (REF) | payer MEDICARE, OTHER ==
[2021-02-02 11:27] LABS: HEMATOCRIT 44.7 % (42.0-52.0); HEMOGLOBIN 14.1 g/dl (13.5-17.5); MEAN CORPUSCULAR HEMOGLOBIN 26.2 pg (27.0-33.0); MEAN CORPUSCULAR HGB CONC 31.5 g/dl (32.0-36.5); MEAN CORPUSCULAR VOLUME 82.9 fl (80.0-96.0); PLATELET COUNT, AUTOMATED 214 10^3/uL (150-450); RED BLOOD COUNT 5.39 10^6/uL (4.30-6.10); WHITE BLOOD COUNT 10.3 10^3/uL (4.0-10.0)
[2021-02-02 12:01] LABS: BLOOD UREA NITROGEN 18 MG/DL (7-18); CALCIUM LEVEL 9.4 MG/DL (8.8-10.2); CARBON DIOXIDE LEVEL 32 MEQ/L (21-32); CHLORIDE LEVEL 103 MEQ/L (98-107); CREATININE FOR GFR 0.92 MG/DL (0.70-1.30); GLOMERULAR FILTRATION RATE > 60.0 (>42); GLUCOSE, FASTING 107 MG/DL (70-100); MAGNESIUM LEVEL 1.7 MG/DL (1.8-2.4); POTASSIUM SERUM 4.1 MEQ/L (3.5-5.1); SODIUM LEVEL 139 MEQ/L (136-145)
== END ==
LOC: M LABDRAWC 11:13
PROVIDERS: ATTEND Physician Assistant
DX: I48.20 Chronic atrial fibrillation, unspecified (principal); I11.9 Hypertensive heart disease without heart failure

== ENCOUNTER → 2021-03-20 | Outpatient (CLI) | payer MEDICARE, OTHER ==
--- NOTE | 2021-03-20 15:33 | REP ---
INDICATION: RIGHT FOOT PAIN. COMPARISON: None. TECHNIQUE: Four views FINDINGS: The joint spaces are symmetric and relatively well maintained. There is no evidence of acute fracture or destructive osseous lesion. There is mild asymmetric joint space narrowing involving the 1st metatarsophalangeal joint with minimal marginal osteophyte formation. IMPRESSION: As above. <Electronically signed by Forrest Olmos > 03/20/21 [id number]
== END ==
LOC: M CLY 14:57
PROVIDERS: ATTEND Family Medicine
DX: M79.671 Pain in right foot (principal)

== ENCOUNTER → 2021-08-14 | Outpatient (REF) | payer MEDICARE, OTHER ==
[2021-08-14 11:46] LABS: HEMATOCRIT 40.9 % (42.0-52.0); HEMOGLOBIN 13.1 g/dl (13.5-17.5); MEAN CORPUSCULAR HEMOGLOBIN 26.7 pg (27.0-33.0); MEAN CORPUSCULAR VOLUME 83.5 fl (80.0-96.0); PLATELET COUNT, AUTOMATED 200 10^3/uL (150-450); WHITE BLOOD COUNT 7.5 10^3/uL (4.0-10.0)
[2021-08-14 12:35] LABS: ALBUMIN 3.5 GM/DL (3.2-5.2); ALT/SGPT 35 U/L (12-78); BILIRUBIN,TOTAL 0.3 MG/DL (0.2-1.0); BLOOD UREA NITROGEN 19 MG/DL (7-18); CALCIUM LEVEL 9.4 MG/DL (8.8-10.2); CARBON DIOXIDE LEVEL 31 MEQ/L (21-32); CHLORIDE LEVEL 104 MEQ/L (98-107); CHOLESTEROL LEVEL 116 MG/DL (<200); CREATININE FOR GFR 1.01 MG/DL (0.70-1.30); GLOMERULAR FILTRATION RATE > 60.0 (>42); GLUCOSE, FASTING 126 MG/DL (70-100); HDL CHOLESTEROL 25 MG/DL (>40); LDL CHOLESTEROL 45 MG/DL (<100); MAGNESIUM LEVEL 1.8 MG/DL (1.8-2.4); NON-HDL-C 91 MG/DL; POTASSIUM SERUM 4.4 MEQ/L (3.5-5.1); SODIUM LEVEL 139 MEQ/L (136-145); TOTAL PROTEIN 7.4 GM/DL (6.4-8.2); TRIGLYCERIDES LEVEL 232 MG/DL (<150)
== END ==
LOC: M LABDRAWC 11:07
PROVIDERS: ATTEND Physician Assistant
DX: I48.20 Chronic atrial fibrillation, unspecified (principal); I11.9 Hypertensive heart disease without heart failure; E78.2 Mixed hyperlipidemia

== ENCOUNTER → 2022-02-11 | Outpatient (REF) | payer MEDICARE, OTHER ==
[2022-02-11 17:28] LABS: HEMATOCRIT 43.5 % (42.0-52.0); HEMOGLOBIN 13.6 g/dl (13.5-17.5); MEAN CORPUSCULAR HEMOGLOBIN 26.7 pg (27.0-33.0); MEAN CORPUSCULAR HGB CONC 31.3 g/dl (32.0-36.5); MEAN CORPUSCULAR VOLUME 85.3 fl (80.0-96.0); PLATELET COUNT, AUTOMATED 219 10^3/uL (150-450); WHITE BLOOD COUNT 10.9 10^3/uL (4.0-10.0)
[2022-02-11 17:54] LABS: CARBON DIOXIDE LEVEL 32 MMOL/L (20-31); CHLORIDE LEVEL 101 MMOL/L (98-107); POTASSIUM SERUM 4.5 MMOL/L (3.5-5.1); SODIUM LEVEL 142 MMOL/L (136-145)
[2022-02-11 17:56] LABS: ALBUMIN 3.8 G/DL (3.2-5.2)
[2022-02-11 17:59] LABS: CALCIUM LEVEL 9.3 MG/DL (8.3-10.6)
[2022-02-11 18:00] LABS: BLOOD UREA NITROGEN 21 MG/DL (9-23); GLUCOSE, FASTING 94 MG/DL (74-106); TRIGLYCERIDES LEVEL 180 MG/DL (<150)
[2022-02-11 18:01] LABS: ALKALINE PHOSPHATASE 111 U/L (46-116); CHOLESTEROL LEVEL 132 MG/DL (<200); MAGNESIUM LEVEL 1.5 MG/DL (1.8-2.4)
[2022-02-11 18:02] LABS: BILIRUBIN,TOTAL 0.3 MG/DL (0.3-1.2); CHOLESTEROL RISK RATIO 4.81 (<5); CREATININE FOR GFR 0.78 MG/DL (0.70-1.30); GLOMERULAR FILTRATION RATE > 60.0 (>42); HDL CHOLESTEROL 27.4 MG/DL (>40); LDL CHOLESTEROL 68.6 MG/DL (<100); NON-HDL-C 105 MG/DL; TOTAL PROTEIN 7.5 G/DL (5.7-8.2)
[2022-02-11 18:03] LABS: ALT/SGPT 16 U/L (7.0-40); AST/SGOT 18 U/L (<34)
== END ==
LOC: M LABDRAWC 16:51
PROVIDERS: ATTEND Physician Assistant
DX: I48.20 Chronic atrial fibrillation, unspecified (principal); E78.2 Mixed hyperlipidemia; I11.9 Hypertensive heart disease without heart failure

== ENCOUNTER → 2022-08-06 | Outpatient (REF) | payer MEDICARE, OTHER ==
[2022-08-06 12:02] LABS: BLOOD UREA NITROGEN 22 MG/DL (9-23); CALCIUM LEVEL 9.1 MG/DL (8.3-10.6); CARBON DIOXIDE LEVEL 30 MMOL/L (20-31); CHLORIDE LEVEL 103 MMOL/L (98-107); CREATININE FOR GFR 0.84 MG/DL (0.70-1.30); GLOMERULAR FILTRATION RATE > 60.0 (>42); GLUCOSE, FASTING 138 MG/DL (74-106); MAGNESIUM LEVEL 1.3 MG/DL (1.8-2.4); SODIUM LEVEL 139 MMOL/L (136-145)
[2022-08-06 12:05] LABS: HEMOGLOBIN 13.6 g/dl (13.5-17.5); MEAN CORPUSCULAR HEMOGLOBIN 27.1 pg (27.0-33.0); MEAN CORPUSCULAR HGB CONC 32.4 g/dl (32.0-36.5); MEAN CORPUSCULAR VOLUME 83.8 fl (80.0-96.0); PLATELET COUNT, AUTOMATED 181 10^3/uL (150-450); RED BLOOD COUNT 5.01 10^6/uL (4.30-6.10); WHITE BLOOD COUNT 9.9 10^3/uL (4.0-10.0)
== END ==
LOC: M LABDRAWC 11:19
PROVIDERS: ATTEND Physician Assistant
DX: I48.20 Chronic atrial fibrillation, unspecified (principal); I11.9 Hypertensive heart disease without heart failure

== ENCOUNTER → 2022-09-18 | Outpatient (REF) | payer MEDICARE ==
[~2022-09-18] MED LIST changes: +DIGO0.123 PO; +VITA200031 PO; +[UNRECOGNIZED DRUG - CODE] PO
[2022-09-18 19:00] LABS: MAGNESIUM LEVEL 1.7 MG/DL (1.8-2.4)
[2022-09-18 19:01] LABS: DIGOXIN LEVEL 0.4 NG/ML (0.8-2.0)
== END ==
LOC: M SFHCCLAY 14:00
PROVIDERS: ATTEND Nurse Practitioner Family
DX: I48.21 Permanent atrial fibrillation (principal)

== ENCOUNTER 2022-09-24 07:59 | Day surgery (SDC) | payer MEDICARE ==
[~2022-09-24] VITALS: Ht 180.3 cm; Wt 103.4 kg
[~2022-09-24 07:59] MED LIST changes: +NS 1,000 ML IV ONE
[2022-09-24] MEDS ORDERED: LIDOCAINE 2% 100MG/5ML SDV (FOR ANES.) As Ordered ONE (10:03)
[2022-09-24] MEDS ORDERED: propofoL 500 MG/50 ML VIAL As Ordered ONE (10:03)
[2022-09-24] MEDS ORDERED: PHENYLephrine 500MCG 5ML (100MCG/ML) SYRINGE As Ordered ONE (10:18)
[2022-09-24 10:33] VITALS: TEMP 97.7
[2022-09-24 10:58] VITALS: BP 100/55; O2SAT 92
== END 2022-09-24 10:59 | disposition home or self-care (01) ==
LOC: M OPP 07:59
PROVIDERS: ATTEND Internal Medicine Gastroenterology
DX: Z86.010 Personal history of colon polyps (principal); Z80.0 Family history of malignant neoplasm of digestive organs; D12.0 Benign neoplasm of cecum; D12.4 Benign neoplasm of descending colon; K63.5 Polyp of colon; K57.30 Diverticulosis of large intestine without perforation or abscess without bleeding; K64.8 Other hemorrhoids; Z87.891 Personal history of nicotine dependence; Z79.51 Long term (current) use of inhaled steroids; Z79.52 Long term (current) use of systemic steroids; Z79.899 Other long term (current) drug therapy
CPT/HCPCS: 45385; 88305; J2370

== ENCOUNTER → 2023-02-17 | Outpatient (REF) | payer MEDICARE ==
[~2023-02-17] MED LIST changes: -NS 1,000 ML IV ONE
[2023-02-17 17:57] LABS: HEMATOCRIT 42.2 % (42.0-52.0); MEAN CORPUSCULAR HEMOGLOBIN 29.7 pg (27.0-33.0); MEAN CORPUSCULAR HGB CONC 33.2 g/dl (32.0-36.5); MEAN CORPUSCULAR VOLUME 89.6 fl (80.0-96.0); PLATELET COUNT, AUTOMATED 211 10^3/uL (150-450); RED BLOOD COUNT 4.71 10^6/uL (4.30-6.10); WHITE BLOOD COUNT 9.4 10^3/uL (4.0-10.0)
[2023-02-17 18:33] LABS: ALBUMIN 3.8 G/DL (3.2-5.2); ALKALINE PHOSPHATASE 91 U/L (46-116); ALT/SGPT 16 U/L (7.0-40); AST/SGOT 16 U/L (<34); BILIRUBIN,TOTAL 0.5 MG/DL (0.3-1.2); BLOOD UREA NITROGEN 24 MG/DL (9-23); CALCIUM LEVEL 9.1 MG/DL (8.3-10.6); CARBON DIOXIDE LEVEL 29 MMOL/L (20-31); CHLORIDE LEVEL 104 MMOL/L (98-107); CHOLESTEROL LEVEL 122 MG/DL (<200); CHOLESTEROL RISK RATIO 3.94 (<5); CREATININE FOR GFR 0.92 MG/DL (0.70-1.30); GLOMERULAR FILTRATION RATE > 60.0 (>42); GLUCOSE, FASTING 106 MG/DL (74-106); HDL CHOLESTEROL 30.9 MG/DL (>40); LDL CHOLESTEROL 61.5 MG/DL (<100); MAGNESIUM LEVEL 1.9 MG/DL (1.8-2.4); NON-HDL-C 91.1 MG/DL; POTASSIUM SERUM 4.9 MMOL/L (3.5-5.1); SODIUM LEVEL 140 MMOL/L (136-145); TOTAL PROTEIN 7.3 G/DL (5.7-8.2); TRIGLYCERIDES LEVEL 148 MG/DL (<150)
== END ==
LOC: M LABDRAWC 16:45
PROVIDERS: ATTEND Physician Assistant
DX: I48.20 Chronic atrial fibrillation, unspecified (principal); I11.9 Hypertensive heart disease without heart failure; E78.2 Mixed hyperlipidemia

== ENCOUNTER → 2023-08-25 | Outpatient (REF) | payer MEDICARE ==
[2023-08-25 11:40] LABS: HEMATOCRIT 43.2 % (42.0-52.0); HEMOGLOBIN 14.3 g/dl (13.5-17.5); MEAN CORPUSCULAR HEMOGLOBIN 29.3 pg (27.0-33.0); MEAN CORPUSCULAR HGB CONC 33.1 g/dl (32.0-36.5); MEAN CORPUSCULAR VOLUME 88.5 fl (80.0-96.0); PLATELET COUNT, AUTOMATED 172 10^3/uL (150-450); RED BLOOD COUNT 4.88 10^6/uL (4.30-6.10); WHITE BLOOD COUNT 9.5 10^3/uL (4.0-10.0)
[2023-08-25 12:08] LABS: BLOOD UREA NITROGEN 21 MG/DL (9-23); CALCIUM LEVEL 9.4 MG/DL (8.3-10.6); CARBON DIOXIDE LEVEL 30 MMOL/L (20-31); CHLORIDE LEVEL 103 MMOL/L (98-107); CREATININE FOR GFR 0.85 MG/DL (0.70-1.30); GLOMERULAR FILTRATION RATE > 60.0 (>42); GLUCOSE, FASTING 103 MG/DL (74-106); MAGNESIUM LEVEL 1.7 MG/DL (1.8-2.4); POTASSIUM SERUM 4.4 MMOL/L (3.5-5.1); SODIUM LEVEL 140 MMOL/L (136-145)
== END ==
LOC: M LABDRAWC 10:50
PROVIDERS: ATTEND Physician Assistant
DX: I48.20 Chronic atrial fibrillation, unspecified (principal); I11.9 Hypertensive heart disease without heart failure

== ENCOUNTER → 2024-03-03 | Outpatient (REF) | payer MEDICARE ==
[~2024-03-03] MED LIST changes: -ADV250INH INH; +ADVA1AER9 INH
[2024-03-03 12:44] LABS: HEMATOCRIT 43.5 % (42.0-52.0); HEMOGLOBIN 14.5 g/dl (13.5-17.5); MEAN CORPUSCULAR HEMOGLOBIN 29.5 pg (27.0-33.0); MEAN CORPUSCULAR HGB CONC 33.3 g/dl (32.0-36.5); MEAN CORPUSCULAR VOLUME 88.4 fl (80.0-96.0); PLATELET COUNT, AUTOMATED 153 10^3/uL (150-450); RED BLOOD COUNT 4.92 10^6/uL (4.30-6.10); WHITE BLOOD COUNT 8.9 10^3/uL (4.0-10.0)
[2024-03-03 13:19] LABS: ALBUMIN 3.9 G/DL (3.2-5.2); ALKALINE PHOSPHATASE 91 U/L (40-129); ALT/SGPT 19 U/L (7.0-40); AST/SGOT 17 U/L (<34); BILIRUBIN,TOTAL 0.8 MG/DL (0.3-1.2); BLOOD UREA NITROGEN 29 MG/DL (9-23); CALCIUM LEVEL 9.3 MG/DL (8.3-10.6); CARBON DIOXIDE LEVEL 29 MMOL/L (20-31); CHLORIDE LEVEL 106 MMOL/L (98-107); CHOLESTEROL LEVEL 135 MG/DL (<200); CHOLESTEROL RISK RATIO 4.24 (<5); CREATININE FOR GFR 0.93 MG/DL (0.70-1.30); GLOMERULAR FILTRATION RATE > 60.0 (>42); GLUCOSE, FASTING 112 MG/DL (74-106); HDL CHOLESTEROL 31.8 MG/DL (>40); MAGNESIUM LEVEL 1.8 MG/DL (1.8-2.4); NON-HDL-C 103.2 MG/DL; POTASSIUM SERUM 4.7 MMOL/L (3.5-5.1); SODIUM LEVEL 142 MMOL/L (136-145); TOTAL PROTEIN 7.3 G/DL (5.7-8.2); TRIGLYCERIDES LEVEL 136 MG/DL (<150)
== END ==
LOC: M LABDRAWC 11:38
PROVIDERS: ATTEND Physician Assistant
DX: I48.21 Permanent atrial fibrillation (principal); I11.9 Hypertensive heart disease without heart failure; E78.2 Mixed hyperlipidemia

== ENCOUNTER → 2024-04-06 | Outpatient (REF) | payer MEDICARE, OTHER | LOC: M SFHCCLAY 14:30 | PROVIDERS: ATTEND Nurse Practitioner Family | DX: J44.9 Chronic obstructive pulmonary disease, unspecified (principal); I48.21 Permanent atrial fibrillation; F17.211 Nicotine dependence, cigarettes, in remission; E78.5 Hyperlipidemia, unspecified; M48.061 Spinal stenosis, lumbar region without neurogenic claudication; Z79.899 Other long term (current) drug therapy ==

== ENCOUNTER → 2024-04-20 | Outpatient (REF) | payer MEDICARE, OTHER | LOC: M SFHCCLAY 13:49 | PROVIDERS: ATTEND Nurse Practitioner Family | DX: E11.9 Type 2 diabetes mellitus without complications (principal) ==

== ENCOUNTER → 2024-09-27 | Outpatient (REF) | payer MEDICARE, OTHER ==
[2024-09-27 19:03] LABS: ALT/SGPT 14 U/L (7.0-40); AST/SGOT 17 U/L (<34); CALCIUM LEVEL 8.9 MG/DL (8.3-10.6); CARBON DIOXIDE LEVEL 29 MMOL/L (20-31); CHLORIDE LEVEL 103 MMOL/L (98-107); CHOLESTEROL LEVEL 123 MG/DL (<200); CHOLESTEROL RISK RATIO 3.78 (<5); CREATININE FOR GFR 0.83 MG/DL (0.70-1.30); GLOMERULAR FILTRATION RATE > 90.0 (>42); LDL CHOLESTEROL 61.9 MG/DL (<100); NON-HDL-C 90.5 MG/DL; POTASSIUM SERUM 4.1 MMOL/L (3.5-5.1); SODIUM LEVEL 143 MMOL/L (136-145); TRIGLYCERIDES LEVEL 143 MG/DL (<150)
[2024-09-27 19:37] LABS: ESTIMATED AVERAGE GLUCOSE 120.0 MG/DL (60-110)
== END ==
LOC: M SFHCCLAY 10:07
PROVIDERS: ATTEND Nurse Practitioner Family
DX: J44.9 Chronic obstructive pulmonary disease, unspecified (principal); I48.21 Permanent atrial fibrillation; F17.211 Nicotine dependence, cigarettes, in remission; E78.5 Hyperlipidemia, unspecified; M48.061 Spinal stenosis, lumbar region without neurogenic claudication; E11.9 Type 2 diabetes mellitus without complications; I77.810 Thoracic aortic ectasia; I10 Essential (primary) hypertension

== ENCOUNTER → 2024-11-29 | Outpatient (CLI) | payer MEDICARE | LOC: M CARPUL 11:43 | PROVIDERS: ATTEND Physician Assistant | DX: I77.810 Thoracic aortic ectasia (principal); I08.0 Rheumatic disorders of both mitral and aortic valves ==

== ENCOUNTER → 2025-03-09 | Outpatient (REF) | payer MEDICARE, OTHER ==
[2025-03-09 12:28] LABS: PLATELET COUNT, AUTOMATED 168 10^3/uL (150-450)
[2025-03-09 13:03] LABS: ALT/SGPT 23.0 U/L (7.0-40); AST/SGOT 21.0 U/L (<34); CALCIUM LEVEL 9.2 MG/DL (8.3-10.6); CARBON DIOXIDE LEVEL 32.0 MMOL/L (20-31); CHLORIDE LEVEL 102.0 MMOL/L (98-107); CHOLESTEROL LEVEL 122.0 MG/DL (<200); CHOLESTEROL RISK RATIO 3.5 (<5); CREATININE FOR GFR 1.04 MG/DL (0.70-1.30); GLOMERULAR FILTRATION RATE 74.0 (>42); LDL CHOLESTEROL 56.0 MG/DL (<100); MAGNESIUM LEVEL 1.9 MG/DL (1.8-2.4); NON-HDL-C 87.2 MG/DL; POTASSIUM SERUM 4.3 MMOL/L (3.5-5.1); SODIUM LEVEL 141.0 MMOL/L (136-145); TRIGLYCERIDES LEVEL 156.0 MG/DL (<150)
== END ==
LOC: M LAB REF 11:58 → M LABDRAWC 11:58
PROVIDERS: ATTEND Physician Assistant
DX: I48.21 Permanent atrial fibrillation (principal); E78.2 Mixed hyperlipidemia; I11.9 Hypertensive heart disease without heart failure